=== PATIENT | male | born 1995 | race Caucasian/White ===

== ENCOUNTER 2020-12-16 15:34 | Emergency (ER) | payer OTHER, SELFPAY ==
[2020-12-16 15:47] VITALS: TEMP 97.4; BMI 23.7
[2020-12-16 18:16] LABS: ALBUMIN 3.1 g/dl (3.4-5.0); BLOOD UREA NITROGEN 9.2 mg/dL (7-18); CALCIUM 9.1 mg/dL (8.5-10.1)
[2020-12-16 18:20] LABS: CREATININE 0.3 mg/dL (0.55-1.3)
[2020-12-16 18:21] LABS: BILIRUBIN,TOTAL 0.4 mg/dL (0.2-1); TOT PROT 7.5 g/dl (6.4-8.2)
[2020-12-16 18:39] LABS: PH,URINE 8.5 (5.0-8.0); URINE APPEARANCE CLEAR; URINE BILIRUBIN NEGATIVE (NEGATIVE); URINE COLOR YELLOW; URINE GLUCOSE (UA) NEGATIVE (NEGATIVE); URINE KETONE NEGATIVE (NEGATIVE); URINE LEUK ESTERASE NEGATIVE (NEGATIVE); URINE NITRITE NEGATIVE (NEGATIVE); URINE PROTEIN NEGATIVE (NEGATIVE)
[2020-12-16 19:20] LABS: HEMATOCRIT 34.3 % (35.4-49); MCH 33.8 pg (25.7-33.7); MEAN CELL VOLUME 96.6 fl (80-96); RBC 3.55 M/mm3 (4.00-5.60); RDW 15.8 % (11.9-15.9); WHITE BLOOD COUNT 4.7 K/mm3 (4.0-10.0)
[2020-12-16 19:56] LABS: MEAN PLT VOLUME 7.6 fl (7.5-11.1); PLATELET COUNT 43 10^3/uL (134-434)
[2020-12-16 22:18] VITALS: BP 103/59; PULSE 58
== END 2020-12-16 22:10 | disposition home or self-care (01) ==
LOC: JER 15:34
DX: D69.6 Thrombocytopenia, unspecified (principal)
CPT/HCPCS: 36415; 70450-TC; 80053; 80164; 80177; 81003; 84443; 85027; 87077; 87086; 99284-25

== ENCOUNTER 2021-02-10 18:06 | Inpatient (IN) | payer OTHER ==
[2021-02-10] MEDS ORDERED: SODIUM CHLORIDE 0.9% 500 ML INFUS.BAG IV ONE (19:20)
[2021-02-10 21:26] LABS: VENOUS BASE EXCESS 0.3 mmol/L (-2-2); VENOUS O2 SATURATION 33.3 % (70-80); VENOUS PCO2 52.6 mmHg (38-52); VENOUS PH 7.327 (7.310-7.410)
[2021-02-10 21:38] LABS: HEMATOCRIT 35.2 % (35.4-49); HEMOGLOBIN 12.3 GM/dL (11.7-16.9); MEAN CELL VOLUME 99.9 fl (80-96); MEAN PLT VOLUME 6.8 fl (7.5-11.1); PLATELET COUNT 266 10^3/uL (134-434); RBC 3.52 M/mm3 (4.00-5.60); RDW 15.7 % (11.9-15.9); WHITE BLOOD COUNT 3.2 K/mm3 (4.0-10.0)
[2021-02-10 22:33] LABS: ALBUMIN 3.1 g/dl (3.4-5.0); ALK PHOS 83 U/L (45-117); ANION GAP 6 MMOL/L (8-16); BILIRUBIN,TOTAL 0.4 mg/dL (0.2-1); BLOOD UREA NITROGEN 7.4 mg/dL (7-18); CALCIUM 9.1 mg/dL (8.5-10.1); CHLORIDE 101 mmol/L (98-107); CO2 28 mmol/L (21-32); CREATININE 0.4 mg/dL (0.55-1.3); GLUCOSE,RANDOM 105 mg/dL (74-106); LACTIC ACID 2.8 mmol/L (0.4-2.0); SGOT/AST 27 U/L (15-37); SGPT/ALT 15 U/L (13-61); SODIUM 136 mmol/L (136-145); TOT PROT 8.2 g/dl (6.4-8.2)
[2021-02-10 23:26] LABS: ANISOCYTOSIS 0; MACROCYTOSIS 1+; PLATELET ESTIMATE NORMAL
[2021-02-11] MEDS ORDERED: VANCOMYCIN 1 GM in D5W (PRE-DOCKED) 1,000 MG/250 ML IVPB ONE (00:49)
[2021-02-11] MEDS ORDERED: PIPERACILLIN/TAZOB 3.375 GM 3.375 GM in DEXTROSE 5%-WATER - 50 ML IVPB ONE (00:49)
[2021-02-11] MEDS ORDERED: PIPERACILLIN/TAZOB 3.375 GM 3.375 GM/50 ML BAG IVPB ONE (01:14)
[2021-02-11] MEDS: SODIUM CHLORIDE 1,000 ML IV SCH (05:54)
[2021-02-11] MEDS: VALPROATE SODIUM 250 MG/5 ML UNIT DOSE CUP GT SCH ×2 (07:29→18:32)
[2021-02-11 08:12] LABS: HEMATOCRIT 32.6 % (35.4-49); MCHC 33.8 g/dl (32.0-35.9); MEAN CELL VOLUME 100.7 fl (80-96); MEAN PLT VOLUME 6.8 fl (7.5-11.1); PLATELET COUNT 255 10^3/uL (134-434); RBC 3.24 M/mm3 (4.00-5.60); WHITE BLOOD COUNT 15.5 K/mm3 (4.0-10.0)
[2021-02-11 08:24] LABS: EPI CELLS 14 /uL (0-25.1); HYALINE CASTS 1 /uL (0-3.1); PH,URINE >= 9.0 (5.0-8.0); URINE APPEARANCE CLEAR; URINE BACTERIA 7 /uL (0-1359); URINE BILIRUBIN NEGATIVE (NEGATIVE); URINE COLOR YELLOW; URINE GLUCOSE (UA) NEGATIVE (NEGATIVE); URINE KETONE NEGATIVE (NEGATIVE); URINE LEUK ESTERASE NEGATIVE (NEGATIVE); URINE NITRITE NEGATIVE (NEGATIVE); URINE PROTEIN NEGATIVE (NEGATIVE); URINE RBC 43 /uL (0-23.9); URINE UROBILINOGEN 0.2 mg/dL (0.2-1.0); URINE WBC 10 /uL (0-25.8)
[2021-02-11] MEDS: levETIRAcetam 500 MG/5 ML ORAL SOLUTION (UNIT-DOSE CUPS) GT SCH ×3 (08:29→21:25)
[2021-02-11 08:34] LABS: BLOOD UREA NITROGEN 7.9 mg/dL (7-18); CALCIUM 8.9 mg/dL (8.5-10.1)
[2021-02-11 08:35] LABS: ALBUMIN 2.6 g/dl (3.4-5.0); MAGNESIUM 2.2 mg/dL (1.8-2.4)
[2021-02-11 08:38] LABS: CREATININE 0.4 mg/dL (0.55-1.3); PHOSPHOROUS 3.7 mg/dL (2.5-4.9)
[2021-02-11 08:39] LABS: BILIRUBIN,TOTAL 0.4 mg/dL (0.2-1); TOT PROT 7.4 g/dl (6.4-8.2)
[2021-02-11] MEDS ORDERED: PIPERACILLIN/TAZOB 4.5 GM 4.5 GM in DEXTROSE 5%-WATER 100 ML IVPB SCH (09:00)
[2021-02-11] MEDS ORDERED: CLOTRIMAZOLE 1% CREAM TP SCH (10:00)
[2021-02-11] MEDS ORDERED: NYSTATIN 100000 UNIT/GM TOPICAL OINTMENT 15 GM TUBE TP SCH (10:00)
[2021-02-11] MEDS ORDERED: DEXTROSE 5%-WATER 100 ML IVPB ONE ×2 (10:20→17:54)
[2021-02-11] MEDS ORDERED: PIPERACILLIN/TAZOBACTAM 4.5 GM VIAL IVPB ONE ×2 (10:20→17:54)
[2021-02-11 10:29] LABS: ANISOCYTOSIS 1+; MACROCYTOSIS 1+; PLATELET ESTIMATE NORMAL
[2021-02-11] MEDS: ALBUTEROL SO4 2.5/IPRATROPIUM 0.5 INH SOL 3 ML VIAL.NEB. NEB SCH ×3 (11:08→20:16)
[2021-02-11] MEDS: ENOXAPARIN NA (PORCINE) 40 MG/0.4 ML DISP.SYRIN SQ SCH (11:09)
[2021-02-11] MEDS: FAMOTIDINE 20 MG/50 ML IVPB 20 MG/50 ML MG IVPB SCH ×2 (11:11→21:24)
[2021-02-11] MEDS ORDERED: PT OWN MED DRAWER 7, Y5N ONE ×3 (11:15→17:55)
[2021-02-11] MEDS: HYDROCORTISONE 1% TOPICAL CREAM 30 GM TUBE TP SCH ×2 (11:48→21:28)
[2021-02-11] MEDS: CLOTRIMAZOLE 1% CREAM TP SCH ×2 (11:48→21:27)
[2021-02-11] MEDS: NYSTATIN 100,000 UNIT/GM TOPICAL CREAM 15 GM TUBE TP SCH ×2 (11:48→21:27)
[2021-02-11] MEDS ORDERED: GLYCOPYRROLATE 2 MG TABLET PO SCH (14:00)
[2021-02-11] MEDS: PIPERACILLIN/TAZOB 4.5 GM 4.5 GM in DEXTROSE 5%-WATER 100 ML IVPB SCH (18:00)
[2021-02-11] MEDS: LEVOTHYROXINE SODIUM 100 MCG VIAL IVPUSH SCH (18:04)
[2021-02-11] MEDS ORDERED: VALPROATE SODIUM 250 MG/5 ML UNIT DOSE CUP GT ONE (20:15)
[2021-02-11] MEDS: GLYCOPYRROLATE 1 MG TABLET PO SCH (21:27)
[2021-02-12] MEDS ORDERED: PIPERACILLIN/TAZOBACTAM 4.5 GM VIAL IVPB ONE ×3 (01:42→16:50)
[2021-02-12] MEDS ORDERED: DEXTROSE 5%-WATER 100 ML IVPB ONE ×3 (01:42→16:51)
[2021-02-12] MEDS: PIPERACILLIN/TAZOB 4.5 GM 4.5 GM in DEXTROSE 5%-WATER 100 ML IVPB SCH ×3 (01:49→17:22)
[2021-02-12] MEDS: GLYCOPYRROLATE 1 MG TABLET PO SCH ×3 (06:18→21:55)
[2021-02-12] MEDS: SODIUM CHLORIDE 1,000 ML IV SCH ×2 (06:19→14:46)
[2021-02-12] MEDS: VALPROATE SODIUM 250 MG/5 ML UNIT DOSE CUP GT SCH ×3 (06:19→20:03)
[2021-02-12] MEDS ORDERED: INSULIN (NOVOLOG) ASPART 100 UNITS/ML 10ML VIAL ONE (06:43)
[2021-02-12] MEDS: ALBUTEROL SO4 2.5/IPRATROPIUM 0.5 INH SOL 3 ML VIAL.NEB. NEB SCH ×4 (07:55→19:53)
[2021-02-12 08:11] LABS: BASO % 0.1 % (0-2.0); EOS % 0.7 % (0-4.5); HEMATOCRIT 25.4 % (35.4-49); HEMOGLOBIN 8.7 GM/dL (11.7-16.9); LYMPH % 13.8 % (8-40); MCH 34.8 pg (25.7-33.7); MCHC 34.2 g/dl (32.0-35.9); MEAN CELL VOLUME 101.5 fl (80-96); MEAN PLT VOLUME 6.8 fl (7.5-11.1); MONO % 15.5 % (3.8-10.2); NEUT % 69.9 % (42.8-82.8); PLATELET COUNT 271 10^3/uL (134-434); RBC 2.51 M/mm3 (4.00-5.60); RDW 16.5 % (11.9-15.9); WHITE BLOOD COUNT 15.2 K/mm3 (4.0-10.0)
[2021-02-12 08:33] LABS: CALCIUM 8.3 mg/dL (8.5-10.1)
[2021-02-12 08:34] LABS: BLOOD UREA NITROGEN 7.7 mg/dL (7-18); MAGNESIUM 2.1 mg/dL (1.8-2.4)
[2021-02-12 08:37] LABS: BILIRUBIN,TOTAL 0.2 mg/dL (0.2-1); CREATININE 0.2 mg/dL (0.55-1.3); TOT PROT 5.7 g/dl (6.4-8.2)
[2021-02-12] MEDS ORDERED: PT OWN MED DRAWER 7, Y5N ONE ×4 (08:52→14:03)
[2021-02-12] MEDS: FAMOTIDINE 20 MG/50 ML IVPB 20 MG/50 ML MG IVPB SCH ×2 (09:00→21:55)
[2021-02-12] MEDS: HYDROCORTISONE 1% TOPICAL CREAM 30 GM TUBE TP SCH ×2 (09:02→21:55)
[2021-02-12] MEDS: levETIRAcetam 500 MG/5 ML ORAL SOLUTION (UNIT-DOSE CUPS) GT SCH ×3 (09:07→20:03)
[2021-02-12] MEDS: CLOTRIMAZOLE 1% CREAM TP SCH ×2 (09:07→21:55)
[2021-02-12] MEDS: NYSTATIN 100,000 UNIT/GM TOPICAL CREAM 15 GM TUBE TP SCH ×2 (09:08→21:55)
[2021-02-12] MEDS: LEVOTHYROXINE SODIUM 100 MCG VIAL IVPUSH SCH (09:08)
[2021-02-12] MEDS: ENOXAPARIN NA (PORCINE) 40 MG/0.4 ML DISP.SYRIN SQ SCH (09:08)
[2021-02-12 16:05] VITALS: BMI 28.1
[2021-02-13] MEDS ORDERED: PIPERACILLIN/TAZOBACTAM 4.5 GM VIAL IVPB ONE ×3 (02:49→18:11)
[2021-02-13] MEDS ORDERED: DEXTROSE 5%-WATER 100 ML IVPB ONE ×3 (02:49→18:11)
[2021-02-13] MEDS: PIPERACILLIN/TAZOB 4.5 GM 4.5 GM in DEXTROSE 5%-WATER 100 ML IVPB SCH ×3 (03:00→18:15)
[2021-02-13] MEDS: GLYCOPYRROLATE 1 MG TABLET PO SCH (06:35)
[2021-02-13] MEDS: VALPROATE SODIUM 250 MG/5 ML UNIT DOSE CUP GT SCH ×3 (06:35→21:10)
[2021-02-13] MEDS: ALBUTEROL SO4 2.5/IPRATROPIUM 0.5 INH SOL 3 ML VIAL.NEB. NEB SCH ×4 (07:45→20:11)
[2021-02-13 09:36] LABS: BASO % 0.1 % (0-2.0); EOS % 1.3 % (0-4.5); HEMATOCRIT 26.5 % (35.4-49); HEMOGLOBIN 9.2 GM/dL (11.7-16.9); LYMPH % 16.7 % (8-40); MCH 34.7 pg (25.7-33.7); MCHC 34.7 g/dl (32.0-35.9); MEAN PLT VOLUME 6.6 fl (7.5-11.1); MONO % 10.9 % (3.8-10.2); PLATELET COUNT 336 10^3/uL (134-434); RBC 2.65 M/mm3 (4.00-5.60); RDW 16.5 % (11.9-15.9); WHITE BLOOD COUNT 12.1 K/mm3 (4.0-10.0)
[2021-02-13 09:58] LABS: ALBUMIN 2.2 g/dl (3.4-5.0); BLOOD UREA NITROGEN 3.1 mg/dL (7-18); CALCIUM 8.8 mg/dL (8.5-10.1); MAGNESIUM 2.3 mg/dL (1.8-2.4)
[2021-02-13 10:02] LABS: CREATININE 0.3 mg/dL (0.55-1.3)
[2021-02-13 10:03] LABS: BILIRUBIN,TOTAL 0.2 mg/dL (0.2-1); TOT PROT 6.3 g/dl (6.4-8.2)
[2021-02-13] MEDS ORDERED: PT OWN MED DRAWER 7, Y5N ONE ×4 (10:07→20:41)
[2021-02-13] MEDS: LEVOTHYROXINE SODIUM 100 MCG VIAL IVPUSH SCH (10:11)
[2021-02-13] MEDS: ENOXAPARIN NA (PORCINE) 40 MG/0.4 ML DISP.SYRIN SQ SCH (10:11)
[2021-02-13] MEDS: NYSTATIN 100,000 UNIT/GM TOPICAL CREAM 15 GM TUBE TP SCH ×2 (10:11→21:11)
[2021-02-13] MEDS: HYDROCORTISONE 1% TOPICAL CREAM 30 GM TUBE TP SCH ×2 (10:11→21:12)
[2021-02-13] MEDS: CLOTRIMAZOLE 1% CREAM TP SCH ×2 (10:11→21:12)
[2021-02-13] MEDS: FAMOTIDINE 20 MG/50 ML IVPB 20 MG/50 ML MG IVPB SCH ×2 (10:11→21:11)
[2021-02-13] MEDS: levETIRAcetam 500 MG/5 ML ORAL SOLUTION (UNIT-DOSE CUPS) GT SCH ×3 (10:13→21:06)
[2021-02-13] MEDS: GLYCOPYRROLATE 1 MG TABLET GT SCH ×2 (13:41→21:59)
[2021-02-14] MEDS ORDERED: DEXTROSE 5%-WATER 100 ML IVPB ONE ×4 (01:22→18:12)
[2021-02-14] MEDS ORDERED: PIPERACILLIN/TAZOBACTAM 4.5 GM VIAL IVPB ONE ×4 (01:22→18:12)
[2021-02-14] MEDS: PIPERACILLIN/TAZOB 4.5 GM 4.5 GM in DEXTROSE 5%-WATER 100 ML IVPB SCH ×3 (01:29→18:20)
[2021-02-14] MEDS ORDERED: PT OWN MED DRAWER 7, Y5N ONE ×7 (05:42→21:57)
[2021-02-14] MEDS: GLYCOPYRROLATE 1 MG TABLET GT SCH ×3 (06:57→22:08)
[2021-02-14] MEDS: VALPROATE SODIUM 250 MG/5 ML UNIT DOSE CUP GT SCH ×3 (06:57→20:27)
[2021-02-14] MEDS: ALBUTEROL SO4 2.5/IPRATROPIUM 0.5 INH SOL 3 ML VIAL.NEB. NEB SCH ×4 (07:20→19:58)
[2021-02-14] MEDS: ENOXAPARIN NA (PORCINE) 40 MG/0.4 ML DISP.SYRIN SQ SCH (09:29)
[2021-02-14] MEDS: levETIRAcetam 500 MG/5 ML ORAL SOLUTION (UNIT-DOSE CUPS) GT SCH ×3 (09:29→20:28)
[2021-02-14] MEDS: FAMOTIDINE 20 MG/50 ML IVPB 20 MG/50 ML MG IVPB SCH ×2 (09:33→22:08)
[2021-02-14 09:54] LABS: HEMOGLOBIN 10.1 GM/dL (11.7-16.9); MCH 34.4 pg (25.7-33.7); MCHC 34.8 g/dl (32.0-35.9); MEAN CELL VOLUME 98.8 fl (80-96); MEAN PLT VOLUME 6.6 fl (7.5-11.1); PLATELET COUNT 333 10^3/uL (134-434); RBC 2.94 M/mm3 (4.00-5.60); RDW 15.8 % (11.9-15.9); WHITE BLOOD COUNT 7.3 K/mm3 (4.0-10.0)
[2021-02-14 10:15] LABS: CALCIUM 8.7 mg/dL (8.5-10.1)
[2021-02-14 10:16] LABS: ALBUMIN 2.4 g/dl (3.4-5.0); BLOOD UREA NITROGEN 3.1 mg/dL (7-18); MAGNESIUM 2.4 mg/dL (1.8-2.4)
[2021-02-14 10:19] LABS: CREATININE 0.3 mg/dL (0.55-1.3)
[2021-02-14 10:20] LABS: BILIRUBIN,TOTAL 0.2 mg/dL (0.2-1); TOT PROT 6.5 g/dl (6.4-8.2)
[2021-02-14 10:33] LABS: ANISOCYTOSIS 1+; MACROCYTOSIS 1+; PLATELET ESTIMATE NORMAL
[2021-02-14] MEDS: HYDROCORTISONE 1% TOPICAL CREAM 30 GM TUBE TP SCH ×2 (12:14→22:09)
[2021-02-14] MEDS: NYSTATIN 100,000 UNIT/GM TOPICAL CREAM 15 GM TUBE TP SCH ×2 (12:14→22:08)
[2021-02-14] MEDS: LEVOTHYROXINE SODIUM 100 MCG VIAL IVPUSH SCH (12:14)
[2021-02-14] MEDS: CLOTRIMAZOLE 1% CREAM TP SCH ×2 (12:14→22:08)
[2021-02-14] MEDS ORDERED: ACETAMINOPHEN 650 MG/20.3 ML ORAL SOLUTION (CUPS) GT ONE (21:51)
[2021-02-14] MEDS ORDERED: INSULIN (NOVOLOG) ASPART 100 UNITS/ML 10ML VIAL SQ ONE (22:32)
[2021-02-15] MEDS ORDERED: PIPERACILLIN/TAZOBACTAM 4.5 GM VIAL IVPB ONE ×3 (01:47→17:11)
[2021-02-15] MEDS ORDERED: DEXTROSE 5%-WATER 100 ML IVPB ONE ×3 (01:47→17:11)
[2021-02-15] MEDS: PIPERACILLIN/TAZOB 4.5 GM 4.5 GM in DEXTROSE 5%-WATER 100 ML IVPB SCH ×3 (02:23→18:16)
[2021-02-15] MEDS ORDERED: PT OWN MED DRAWER 7, Y5N ONE ×3 (06:30→20:55)
[2021-02-15] MEDS: VALPROATE SODIUM 250 MG/5 ML UNIT DOSE CUP GT SCH ×3 (06:37→21:24)
[2021-02-15] MEDS: GLYCOPYRROLATE 1 MG TABLET GT SCH ×3 (06:37→21:22)
[2021-02-15] MEDS: ALBUTEROL SO4 2.5/IPRATROPIUM 0.5 INH SOL 3 ML VIAL.NEB. NEB SCH ×4 (07:25→20:35)
[2021-02-15 09:16] LABS: HEMATOCRIT 28.9 % (35.4-49); HEMOGLOBIN 10.1 GM/dL (11.7-16.9); MCH 34.8 pg (25.7-33.7); MCHC 34.9 g/dl (32.0-35.9); MEAN CELL VOLUME 99.7 fl (80-96); MEAN PLT VOLUME 6.7 fl (7.5-11.1); PLATELET COUNT 362 10^3/uL (134-434); RDW 15.8 % (11.9-15.9); WHITE BLOOD COUNT 5.9 K/mm3 (4.0-10.0)
[2021-02-15] MEDS: FAMOTIDINE 20 MG/50 ML IVPB 20 MG/50 ML MG IVPB SCH ×2 (09:31→21:23)
[2021-02-15] MEDS: LEVOTHYROXINE SODIUM 100 MCG VIAL IVPUSH SCH (09:32)
[2021-02-15] MEDS: ENOXAPARIN NA (PORCINE) 40 MG/0.4 ML DISP.SYRIN SQ SCH (09:32)
[2021-02-15] MEDS: levETIRAcetam 500 MG/5 ML ORAL SOLUTION (UNIT-DOSE CUPS) GT SCH ×3 (09:38→21:22)
[2021-02-15 09:45] LABS: ALBUMIN 2.4 g/dl (3.4-5.0); BILIRUBIN,TOTAL 0.3 mg/dL (0.2-1); TOT PROT 6.6 g/dl (6.4-8.2)
[2021-02-15 09:46] LABS: CALCIUM 8.5 mg/dL (8.5-10.1)
[2021-02-15 09:47] LABS: BLOOD UREA NITROGEN 4.8 mg/dL (7-18); MAGNESIUM 2.4 mg/dL (1.8-2.4)
[2021-02-15 09:48] LABS: CREATININE 0.3 mg/dL (0.55-1.3)
[2021-02-15 10:14] LABS: ANISOCYTOSIS 1+; MACROCYTOSIS 1+; PLATELET ESTIMATE NORMAL
[2021-02-15] MEDS: HYDROCORTISONE 1% TOPICAL CREAM 30 GM TUBE TP SCH ×2 (12:43→21:21)
[2021-02-15] MEDS: NYSTATIN 100,000 UNIT/GM TOPICAL CREAM 15 GM TUBE TP SCH ×2 (12:43→21:21)
[2021-02-15] MEDS: CLOTRIMAZOLE 1% CREAM TP SCH ×2 (12:43→21:20)
[2021-02-15] MEDS ORDERED: ACETAMINOPHEN 650 MG/20.3 ML ORAL SOLUTION (CUPS) GT ONE (21:56)
[2021-02-16] MEDS ORDERED: PT OWN MED DRAWER 7, Y5N ONE ×4 (06:20→10:04)
[2021-02-16] MEDS: GLYCOPYRROLATE 1 MG TABLET GT SCH (06:22)
[2021-02-16] MEDS: VALPROATE SODIUM 250 MG/5 ML UNIT DOSE CUP GT SCH (06:23)
[2021-02-16 06:46] VITALS: BP 110/71; PULSE 78; TEMP 98.2
[2021-02-16] MEDS: ALBUTEROL SO4 2.5/IPRATROPIUM 0.5 INH SOL 3 ML VIAL.NEB. NEB SCH ×2 (07:30→11:10)
[2021-02-16] MEDS ORDERED: AMOX TR/POTASSIUM CLAVULANATE 400 MG/5 ML BOTTLE GT SCH (08:00)
[2021-02-16] MEDS: levETIRAcetam 500 MG/5 ML ORAL SOLUTION (UNIT-DOSE CUPS) GT SCH (08:53)
[2021-02-16] MEDS: FAMOTIDINE 20 MG/50 ML IVPB 20 MG/50 ML MG IVPB SCH (10:07)
[2021-02-16] MEDS: ENOXAPARIN NA (PORCINE) 40 MG/0.4 ML DISP.SYRIN SQ SCH (10:07)
[2021-02-16] MEDS: LEVOTHYROXINE SODIUM 100 MCG VIAL IVPUSH SCH (10:08)
[2021-02-16] MEDS: NYSTATIN 100,000 UNIT/GM TOPICAL CREAM 15 GM TUBE TP SCH (10:08)
[2021-02-16] MEDS: CLOTRIMAZOLE 1% CREAM TP SCH (10:10)
[2021-02-16 10:28] LABS: HEMATOCRIT 30.9 % (35.4-49); HEMOGLOBIN 10.5 GM/dL (11.7-16.9); MCH 34.4 pg (25.7-33.7); MCHC 33.9 g/dl (32.0-35.9); MEAN CELL VOLUME 101.2 fl (80-96); MEAN PLT VOLUME 6.8 fl (7.5-11.1); PLATELET COUNT 374 10^3/uL (134-434); RBC 3.05 M/mm3 (4.00-5.60); RDW 16.1 % (11.9-15.9); WHITE BLOOD COUNT 6.9 K/mm3 (4.0-10.0)
[2021-02-16 11:03] LABS: ALBUMIN 2.4 g/dl (3.4-5.0); CALCIUM 8.6 mg/dL (8.5-10.1); MAGNESIUM 2.5 mg/dL (1.8-2.4)
[2021-02-16 11:04] LABS: BLOOD UREA NITROGEN 7.2 mg/dL (7-18)
[2021-02-16 11:07] LABS: CREATININE 0.3 mg/dL (0.55-1.3)
[2021-02-16 11:08] LABS: BILIRUBIN,TOTAL 0.2 mg/dL (0.2-1); TOT PROT 6.6 g/dl (6.4-8.2)
[2021-02-16 13:03] LABS: ANISOCYTOSIS 1+; MACROCYTOSIS 0; OVALOCYTE 1+; PLATELET ESTIMATE NORMAL
== END 2021-02-16 12:25 | disposition home or self-care (01) | DRG 720 ==
LOC: JER 18:06 → JERBED 02-11 00:48 → J8W 02-11 08:30
PROVIDERS: ADMIT Internal Medicine; ATTEND Nurse Practitioner Acute Care
PROC: 3E0G76Z Introduction of Nutritional Substance into Upper GI, Via Natural or Artificial Opening (ICD-10-PCS; principal; 2021-02-11)
DX: A41.9 Sepsis, unspecified organism (principal); F79 Unspecified intellectual disabilities; J69.0 Pneumonitis due to inhalation of food and vomit; G40.909 Epilepsy, unspecified, not intractable, without status epilepticus; R21 Rash and other nonspecific skin eruption; R53.2 Functional quadriplegia; E87.2 Acidosis; G80.0 Spastic quadriplegic cerebral palsy; G40.834 Dravet syndrome, intractable, without status epilepticus; D64.9 Anemia, unspecified; Z93.1 Gastrostomy status
CPT/HCPCS: 36415; 71045-TC-FY; 71275-TC; 80053; 80164; 80177; 81003; 82550; 82803; 83605; 83735; 84100; 84484; 85025; 85379; 86850; 86900; 86901; 87040; 87804; 87899; 93005; 93010; 94640; 99291; C9803; U0003; U0005

== ENCOUNTER 2022-01-28 09:48 | Inpatient (IN) | payer OTHER, SELFPAY ==
[2022-01-28 11:58] LABS: VENOUS O2 SATURATION 93.2 % (70-80); VENOUS PCO2 41.7 mmHg (38-52); VENOUS PH 7.394 (7.310-7.410)
[2022-01-28 11:59] LABS: HEMATOCRIT 33.6 % (35.4-49); HEMOGLOBIN 10.7 GM/dL (11.7-16.9); MCH 29.6 pg (25.7-33.7); MCHC 31.9 g/dl (32.0-35.9); MEAN CELL VOLUME 92.7 fl (80-96); MEAN PLT VOLUME 6.2 fl (7.5-11.1); PLATELET COUNT 104 10^3/uL (134-434); RBC 3.62 M/mm3 (4.00-5.60); RDW 16.1 % (11.9-15.9); WHITE BLOOD COUNT 11.5 K/mm3 (4.0-10.0)
[2022-01-28 12:01] LABS: PH,URINE 7.5 (5.0-8.0); URINE APPEARANCE CLEAR; URINE BILIRUBIN NEGATIVE (NEGATIVE); URINE COLOR DK YELLOW; URINE GLUCOSE (UA) NEGATIVE (NEGATIVE); URINE KETONE NEGATIVE (NEGATIVE); URINE LEUK ESTERASE NEGATIVE (NEGATIVE); URINE NITRITE NEGATIVE (NEGATIVE); URINE PROTEIN TRACE (NEGATIVE)
[2022-01-28 12:13] LABS: INR 1.06 (0.83-1.09); PROTHROMBIN TIME (PATIENT) 12.2 SEC (9.7-13.0)
[2022-01-28 12:16] LABS: ACTIVATED PTT 24.1 SECONDS (25.2-36.5)
[2022-01-28 12:20] LABS: BLOOD UREA NITROGEN 10.1 mg/dL (7-18); CALCIUM 8.7 mg/dL (8.5-10.1)
[2022-01-28 12:23] LABS: CREATININE 0.3 mg/dL (0.55-1.3)
[2022-01-28 12:25] LABS: ANISOCYTOSIS 0; BILIRUBIN,TOTAL 0.4 mg/dL (0.2-1); MACROCYTOSIS 0; TOT PROT 6.9 g/dl (6.4-8.2)
[2022-01-28] MEDS ORDERED: VALPROATE SODIUM 250 MG/5 ML UNIT DOSE CUP PO SCH (17:45)
[2022-01-28 20:37] VITALS: BMI 29.8
[2022-01-29] MEDS: VALPROATE SODIUM 250 MG/5 ML UNIT DOSE CUP GT SCH ×4 (02:10→23:00)
[2022-01-29] MEDS: FAMOTIDINE 40 MG/5 ML ORAL SUSPENSION GT SCH ×3 (02:10→23:06)
[2022-01-29] MEDS: LEVOTHYROXINE NA 75 MCG TABLET (FP) GT SCH (06:44)
[2022-01-29] MEDS ORDERED: ALBUTEROL SO4 2.5/IPRATROPIUM 0.5 INH SOL 3 ML VIAL.NEB. NEB PRN (07:49)
[2022-01-29] MEDS: levETIRAcetam 500 MG/5 ML ORAL SOLUTION (UNIT-DOSE CUPS) GT SCH ×3 (09:00→12:48)
[2022-01-29] MEDS: CEFTRIAXONE 1 GM in DEXTROSE 5%-WATER - 50 ML IVPB SCH ×2 (09:36→13:12)
[2022-01-29 09:39] LABS: HEMATOCRIT 31.9 % (35.4-49); HEMOGLOBIN 10.1 GM/dL (11.7-16.9); MCH 29.1 pg (25.7-33.7); MCHC 31.6 g/dl (32.0-35.9); MEAN PLT VOLUME 6.7 fl (7.5-11.1); PLATELET COUNT 177 10^3/uL (134-434); RBC 3.47 M/mm3 (4.00-5.60); RDW 16.1 % (11.9-15.9); WHITE BLOOD COUNT 9.6 K/mm3 (4.0-10.0)
[2022-01-29] MEDS: LACTOBACILLUS ACIDOPHILUS 1 TABLET GT SCH (09:42)
[2022-01-29 09:50] LABS: INR 1.09 (0.83-1.09); PROTHROMBIN TIME (PATIENT) 12.6 SEC (9.7-13.0)
[2022-01-29 09:52] LABS: ACTIVATED PTT 31.3 SECONDS (25.2-36.5)
[2022-01-29 10:10] LABS: ANISOCYTOSIS 0; HELMET CELLS 0; HOWELL-JOLLY BODIES 0; MACROCYTOSIS 0; OVALOCYTE 0; ROULEAU 0; SICKELED CELLS 0; TARGET CELLS 0; TEAR DROP CELLS 0; TOXIC GRANULATION 0
[2022-01-29 11:40] LABS: ALBUMIN 2.2 g/dl (3.4-5.0); CALCIUM 8.9 mg/dL (8.5-10.1); MAGNESIUM 2.6 mg/dL (1.8-2.4)
[2022-01-29 11:43] LABS: CREATININE 0.5 mg/dL (0.55-1.3)
[2022-01-29 11:44] LABS: PHOSPHOROUS 4.9 mg/dL (2.5-4.9)
[2022-01-29 11:45] LABS: BILIRUBIN,TOTAL 0.5 mg/dL (0.2-1); TOT PROT 7.2 g/dl (6.4-8.2)
[2022-01-29 11:59] LABS: BF WBC & OTHER NUCLEATED CELLS 2566 /mm3
[2022-01-29 13:13] LABS: BODY FLUID MACROPHAGES 6 %; BODYL FLD EOSINOPHIL 2 %
[2022-01-29] MEDS: AZITHROMYCIN IVPB 500 MG/250 ML BAG IVPB SCH (14:05)
[2022-01-29] MEDS: GLYCOPYRROLATE 1 MG TABLET GT SCH ×2 (14:08→23:06)
[2022-01-30] MEDS: LEVOTHYROXINE NA 75 MCG TABLET (FP) GT SCH (06:19)
[2022-01-30] MEDS: GLYCOPYRROLATE 1 MG TABLET GT SCH ×3 (06:19→21:28)
[2022-01-30] MEDS: VALPROATE SODIUM 250 MG/5 ML UNIT DOSE CUP GT SCH ×3 (06:20→20:30)
[2022-01-30 08:35] LABS: HEMATOCRIT 32.8 % (35.4-49); HEMOGLOBIN 10.3 GM/dL (11.7-16.9); MCHC 31.4 g/dl (32.0-35.9); MEAN CELL VOLUME 92.2 fl (80-96); MEAN PLT VOLUME 6.4 fl (7.5-11.1); PLATELET COUNT 198 10^3/uL (134-434); RBC 3.56 M/mm3 (4.00-5.60); WHITE BLOOD COUNT 8.7 K/mm3 (4.0-10.0)
[2022-01-30 09:07] LABS: BLOOD UREA NITROGEN 15.5 mg/dL (7-18); CALCIUM 8.6 mg/dL (8.5-10.1); MAGNESIUM 2.4 mg/dL (1.8-2.4)
[2022-01-30 09:08] LABS: CREATININE 0.3 mg/dL (0.55-1.3)
[2022-01-30 09:10] LABS: BILIRUBIN,TOTAL 0.4 mg/dL (0.2-1); TOT PROT 6.6 g/dl (6.4-8.2)
[2022-01-30] MEDS: CEFTRIAXONE 1 GM in DEXTROSE 5%-WATER - 50 ML IVPB SCH (09:40)
[2022-01-30] MEDS: levETIRAcetam 500 MG/5 ML ORAL SOLUTION (UNIT-DOSE CUPS) GT SCH ×2 (09:40→12:09)
[2022-01-30] MEDS: LACTOBACILLUS ACIDOPHILUS 1 TABLET GT SCH (09:43)
[2022-01-30] MEDS: FAMOTIDINE 40 MG/5 ML ORAL SUSPENSION GT SCH ×2 (09:43→21:27)
[2022-01-30 11:00] LABS: ANISOCYTOSIS 1+; MACROCYTOSIS 0; TOXIC GRANULATION 2+
[2022-01-30] MEDS: AZITHROMYCIN IVPB 500 MG/250 ML BAG IVPB SCH (12:08)
[2022-01-30] MEDS: ENOXAPARIN NA (PORCINE) 40 MG/0.4 ML DISP.SYRIN SQ SCH (15:37)
[2022-01-31] MEDS: GLYCOPYRROLATE 1 MG TABLET GT SCH ×3 (06:27→21:33)
[2022-01-31] MEDS: LEVOTHYROXINE NA 75 MCG TABLET (FP) GT SCH (06:27)
[2022-01-31] MEDS: VALPROATE SODIUM 250 MG/5 ML UNIT DOSE CUP GT SCH ×3 (06:38→20:46)
[2022-01-31 09:25] LABS: HEMATOCRIT 29.4 % (35.4-49); HEMOGLOBIN 9.3 GM/dL (11.7-16.9); MCH 28.7 pg (25.7-33.7); MCHC 31.6 g/dl (32.0-35.9); MEAN CELL VOLUME 90.9 fl (80-96); MEAN PLT VOLUME 6.6 fl (7.5-11.1); PLATELET COUNT 226 10^3/uL (134-434); RBC 3.23 M/mm3 (4.00-5.60); RDW 16.2 % (11.9-15.9); WHITE BLOOD COUNT 8.2 K/mm3 (4.0-10.0)
[2022-01-31 10:03] LABS: ALBUMIN 1.8 g/dl (3.4-5.0); ANISOCYTOSIS 0; HELMET CELLS 0; HOWELL-JOLLY BODIES 0; MACROCYTOSIS 0; OVALOCYTE 0; ROULEAU 0; SICKELED CELLS 0; TARGET CELLS 0; TEAR DROP CELLS 0; TOXIC GRANULATION 0
[2022-01-31 10:04] LABS: BLOOD UREA NITROGEN 13.5 mg/dL (7-18); CALCIUM 8.7 mg/dL (8.5-10.1); MAGNESIUM 2.4 mg/dL (1.8-2.4)
[2022-01-31 10:06] LABS: CREATININE 0.3 mg/dL (0.55-1.3)
[2022-01-31 10:08] LABS: BILIRUBIN,TOTAL 0.4 mg/dL (0.2-1); TOT PROT 6.4 g/dl (6.4-8.2)
[2022-01-31] MEDS: levETIRAcetam 500 MG/5 ML ORAL SOLUTION (UNIT-DOSE CUPS) GT SCH ×2 (11:21→13:53)
[2022-01-31] MEDS: CEFTRIAXONE 1 GM in DEXTROSE 5%-WATER - 50 ML IVPB SCH (11:24)
[2022-01-31] MEDS: ENOXAPARIN NA (PORCINE) 40 MG/0.4 ML DISP.SYRIN SQ SCH (11:25)
[2022-01-31] MEDS: LACTOBACILLUS ACIDOPHILUS 1 TABLET GT SCH (11:25)
[2022-01-31] MEDS: FAMOTIDINE 40 MG/5 ML ORAL SUSPENSION GT SCH ×2 (11:25→21:32)
[2022-01-31] MEDS: AZITHROMYCIN IVPB 500 MG/250 ML BAG IVPB SCH (12:35)
[2022-02-01] MEDS ORDERED: ACETAMINOPHEN 650 MG/20.3 ML ORAL SOLUTION (CUPS) GT ONE (02:20)
[2022-02-01] MEDS: LEVOTHYROXINE NA 75 MCG TABLET (FP) GT SCH (06:05)
[2022-02-01] MEDS: GLYCOPYRROLATE 1 MG TABLET GT SCH ×3 (06:05→21:22)
[2022-02-01] MEDS: VALPROATE SODIUM 250 MG/5 ML UNIT DOSE CUP GT SCH ×3 (06:06→21:21)
[2022-02-01] MEDS: levETIRAcetam 500 MG/5 ML ORAL SOLUTION (UNIT-DOSE CUPS) GT SCH ×2 (08:26→12:19)
[2022-02-01 09:31] LABS: HEMATOCRIT 28.1 % (35.4-49); HEMOGLOBIN 9.3 GM/dL (11.7-16.9); MCH 29.9 pg (25.7-33.7); MCHC 33.1 g/dl (32.0-35.9); MEAN CELL VOLUME 90.3 fl (80-96); MEAN PLT VOLUME 6.1 fl (7.5-11.1); PLATELET COUNT 243 10^3/uL (134-434); RBC 3.11 M/mm3 (4.00-5.60); RDW 15.9 % (11.9-15.9); WHITE BLOOD COUNT 9.8 K/mm3 (4.0-10.0)
[2022-02-01 09:55] LABS: CALCIUM 8.7 mg/dL (8.5-10.1)
[2022-02-01 09:56] LABS: BLOOD UREA NITROGEN 10.7 mg/dL (7-18); MAGNESIUM 2.4 mg/dL (1.8-2.4)
[2022-02-01 09:59] LABS: CREATININE 0.3 mg/dL (0.55-1.3)
[2022-02-01 10:00] LABS: BILIRUBIN,TOTAL 0.6 mg/dL (0.2-1); TOT PROT 6.8 g/dl (6.4-8.2)
[2022-02-01] MEDS: AZITHROMYCIN IVPB 500 MG/250 ML BAG IVPB SCH (11:09)
[2022-02-01] MEDS: FAMOTIDINE 40 MG/5 ML ORAL SUSPENSION GT SCH ×2 (11:09→21:21)
[2022-02-01] MEDS: CEFTRIAXONE 1 GM in DEXTROSE 5%-WATER - 50 ML IVPB SCH (11:09)
[2022-02-01] MEDS: ENOXAPARIN NA (PORCINE) 40 MG/0.4 ML DISP.SYRIN SQ SCH (11:09)
[2022-02-01] MEDS: LACTOBACILLUS ACIDOPHILUS 1 TABLET GT SCH (11:10)
[2022-02-01 13:01] LABS: ANISOCYTOSIS 1+; MACROCYTOSIS 0
[2022-02-01] MEDS ORDERED: ACETAMINOPHEN 1000 MG/100 ML BAG IVPB ONE (16:01)
[2022-02-01 18:07] LABS: BODY FLUID ALBUMIN 2.4 g/dL (Not Estab.)
[2022-02-01] MEDS: ACETAMINOPHEN 650 MG/20.3 ML ORAL SOLUTION (CUPS) PO PRN (23:31)
[2022-02-02] MEDS: VALPROATE SODIUM 250 MG/5 ML UNIT DOSE CUP GT SCH ×3 (06:32→21:36)
[2022-02-02] MEDS: GLYCOPYRROLATE 1 MG TABLET GT SCH ×3 (06:32→21:37)
[2022-02-02] MEDS: LEVOTHYROXINE NA 75 MCG TABLET (FP) GT SCH (06:32)
[2022-02-02 09:37] LABS: HEMOGLOBIN 8.8 GM/dL (11.7-16.9); MCHC 32.7 g/dl (32.0-35.9); MEAN CELL VOLUME 91.7 fl (80-96); MEAN PLT VOLUME 6.5 fl (7.5-11.1); PLATELET COUNT 255 10^3/uL (134-434); RBC 2.95 M/mm3 (4.00-5.60); RDW 16.1 % (11.9-15.9); WHITE BLOOD COUNT 9.1 K/mm3 (4.0-10.0)
[2022-02-02 09:54] LABS: CALCIUM 8.7 mg/dL (8.5-10.1)
[2022-02-02 09:55] LABS: ALBUMIN 1.8 g/dl (3.4-5.0); BLOOD UREA NITROGEN 8.6 mg/dL (7-18); MAGNESIUM 2.6 mg/dL (1.8-2.4)
[2022-02-02 09:59] LABS: CREATININE 0.3 mg/dL (0.55-1.3)
[2022-02-02 10:00] LABS: BILIRUBIN,TOTAL 0.3 mg/dL (0.2-1)
[2022-02-02] MEDS: LACTOBACILLUS ACIDOPHILUS 1 TABLET GT SCH (10:32)
[2022-02-02] MEDS: levETIRAcetam 500 MG/5 ML ORAL SOLUTION (UNIT-DOSE CUPS) GT SCH ×2 (10:32→14:32)
[2022-02-02] MEDS: CEFTRIAXONE 1 GM in DEXTROSE 5%-WATER - 50 ML IVPB SCH (10:32)
[2022-02-02] MEDS: ENOXAPARIN NA (PORCINE) 40 MG/0.4 ML DISP.SYRIN SQ SCH (10:33)
[2022-02-02] MEDS: AZITHROMYCIN IVPB 500 MG/250 ML BAG IVPB SCH (10:34)
[2022-02-02] MEDS: FAMOTIDINE 40 MG/5 ML ORAL SUSPENSION GT SCH ×2 (10:37→21:40)
[2022-02-02 11:07] LABS: ANISOCYTOSIS 1+; MACROCYTOSIS 0; PLATELET ESTIMATE NORMAL
[2022-02-03] MEDS: LEVOTHYROXINE NA 75 MCG TABLET (FP) GT SCH (06:21)
[2022-02-03] MEDS: GLYCOPYRROLATE 1 MG TABLET GT SCH ×3 (06:22→22:10)
[2022-02-03] MEDS: VALPROATE SODIUM 250 MG/5 ML UNIT DOSE CUP GT SCH ×3 (06:23→22:09)
[2022-02-03] MEDS: ACETAMINOPHEN 650 MG/20.3 ML ORAL SOLUTION (CUPS) PO PRN ×2 (06:41→23:01)
[2022-02-03] MEDS: levETIRAcetam 500 MG/5 ML ORAL SOLUTION (UNIT-DOSE CUPS) GT SCH ×2 (09:35→13:26)
[2022-02-03] MEDS: ENOXAPARIN NA (PORCINE) 40 MG/0.4 ML DISP.SYRIN SQ SCH (09:35)
[2022-02-03] MEDS: FAMOTIDINE 40 MG/5 ML ORAL SUSPENSION GT SCH ×2 (09:35→22:10)
[2022-02-03] MEDS: LACTOBACILLUS ACIDOPHILUS 1 TABLET GT SCH (09:35)
[2022-02-03] MEDS: CEFTRIAXONE 1 GM in DEXTROSE 5%-WATER - 50 ML IVPB SCH (09:36)
[2022-02-03 12:06] LABS: HEMOGLOBIN 8.7 GM/dL (11.7-16.9); MCH 29.5 pg (25.7-33.7); MCHC 32.3 g/dl (32.0-35.9); MEAN CELL VOLUME 91.3 fl (80-96); MEAN PLT VOLUME 6.7 fl (7.5-11.1); PLATELET COUNT 346 10^3/uL (134-434); RBC 2.95 M/mm3 (4.00-5.60); WHITE BLOOD COUNT 9.2 K/mm3 (4.0-10.0)
[2022-02-03 12:36] LABS: ALBUMIN 1.8 g/dl (3.4-5.0)
[2022-02-03 12:37] LABS: CALCIUM 9.1 mg/dL (8.5-10.1)
[2022-02-03 12:41] LABS: MAGNESIUM 2.5 mg/dL (1.8-2.4)
[2022-02-03 12:45] LABS: BILIRUBIN,TOTAL 0.2 mg/dL (0.2-1); CREATININE 0.3 mg/dL (0.55-1.3); TOT PROT 6.4 g/dl (6.4-8.2)
[2022-02-03 13:13] LABS: ANISOCYTOSIS 0; HELMET CELLS 0; HOWELL-JOLLY BODIES 0; MACROCYTOSIS 0; OVALOCYTE 0; ROULEAU 0; SICKELED CELLS 0; TARGET CELLS 0; TEAR DROP CELLS 0; TOXIC GRANULATION 0
[2022-02-03] MEDS: AZITHROMYCIN IVPB 500 MG/250 ML BAG IVPB SCH (14:03)
[2022-02-03] MEDS ORDERED: AZITHROMYCIN 200 MG/5 ML BOTTLE GT ONE (15:56)
[2022-02-03] MEDS ORDERED: PATIENT'S OWN MEDICATION (NON-FORMULARY) (Cannabidiol (Cbd) [Epidiolex] 100 MG/ML Solution GT SCH (22:00)
[2022-02-03] MEDS: CANNABIDIOL 100 MG/ML GT SCH (22:09)
[2022-02-03] MEDS: [UNRECOGNIZED DRUG - OTHER] GT SCH (22:09)
[2022-02-04] MEDS: GLYCOPYRROLATE 1 MG TABLET GT SCH ×3 (06:43→21:20)
[2022-02-04] MEDS: VALPROATE SODIUM 250 MG/5 ML UNIT DOSE CUP GT SCH ×3 (06:43→21:18)
[2022-02-04] MEDS: LEVOTHYROXINE NA 75 MCG TABLET (FP) GT SCH (06:44)
[2022-02-04 10:01] LABS: HEMATOCRIT 26.9 % (35.4-49); HEMOGLOBIN 8.7 GM/dL (11.7-16.9); MCH 29.6 pg (25.7-33.7); MCHC 32.3 g/dl (32.0-35.9); MEAN CELL VOLUME 91.5 fl (80-96); MEAN PLT VOLUME 6.4 fl (7.5-11.1); PLATELET COUNT 382 10^3/uL (134-434); RBC 2.94 M/mm3 (4.00-5.60); RDW 15.8 % (11.9-15.9); WHITE BLOOD COUNT 6.7 K/mm3 (4.0-10.0)
[2022-02-04 10:30] LABS: CREATININE 0.2 mg/dL (0.55-1.3)
[2022-02-04 10:31] LABS: ALBUMIN 1.8 g/dl (3.4-5.0); BLOOD UREA NITROGEN 8.1 mg/dL (7-18)
[2022-02-04 10:32] LABS: BILIRUBIN,TOTAL 0.2 mg/dL (0.2-1); TOT PROT 6.2 g/dl (6.4-8.2)
[2022-02-04 10:33] LABS: CALCIUM 8.6 mg/dL (8.5-10.1)
[2022-02-04 10:35] LABS: MAGNESIUM 2.3 mg/dL (1.8-2.4)
[2022-02-04] MEDS: levETIRAcetam 500 MG/5 ML ORAL SOLUTION (UNIT-DOSE CUPS) GT SCH ×2 (10:36→14:36)
[2022-02-04] MEDS: FAMOTIDINE 40 MG/5 ML ORAL SUSPENSION GT SCH ×2 (10:36→21:19)
[2022-02-04] MEDS: LACTOBACILLUS ACIDOPHILUS 1 TABLET GT SCH (10:36)
[2022-02-04] MEDS: ENOXAPARIN NA (PORCINE) 40 MG/0.4 ML DISP.SYRIN SQ SCH (10:36)
[2022-02-04 10:51] LABS: ANISOCYTOSIS 0; HELMET CELLS 0; HOWELL-JOLLY BODIES 0; MACROCYTOSIS 0; OVALOCYTE 0; ROULEAU 0; SICKELED CELLS 0; TARGET CELLS 0; TEAR DROP CELLS 0; TOXIC GRANULATION 0
[2022-02-04] MEDS: AZITHROMYCIN IVPB 500 MG/250 ML BAG IVPB SCH (12:32)
[2022-02-04] MEDS: CEFTRIAXONE 1 GM in DEXTROSE 5%-WATER - 50 ML IVPB SCH (12:32)
[2022-02-04] MEDS: [UNRECOGNIZED DRUG - OTHER] GT SCH ×2 (13:07→21:19)
[2022-02-04] MEDS: CANNABIDIOL 100 MG/ML GT SCH ×2 (13:07→21:19)
[2022-02-04] MEDS: FERROUS SO4 300 MG/5 ML ORAL SOLN UNIT DOSE CUPS GT SCH ×2 (14:36→21:19)
[2022-02-04] MEDS: AMOX TR/POTASSIUM CLAVULANATE 600 MG/5 ML GT SCH (19:49)
[2022-02-05 05:06] VITALS: RESP 18
[2022-02-05] MEDS: LEVOTHYROXINE NA 75 MCG TABLET (FP) GT SCH (06:16)
[2022-02-05] MEDS: GLYCOPYRROLATE 1 MG TABLET GT SCH ×2 (06:17→13:25)
[2022-02-05] MEDS: FERROUS SO4 300 MG/5 ML ORAL SOLN UNIT DOSE CUPS GT SCH ×2 (06:17→13:24)
[2022-02-05] MEDS: VALPROATE SODIUM 250 MG/5 ML UNIT DOSE CUP GT SCH ×2 (06:17→13:23)
[2022-02-05 07:47] VITALS: BP 124/62; PULSE 101; TEMP 98
[2022-02-05] MEDS: AMOX TR/POTASSIUM CLAVULANATE 600 MG/5 ML GT SCH (09:30)
[2022-02-05] MEDS: levETIRAcetam 500 MG/5 ML ORAL SOLUTION (UNIT-DOSE CUPS) GT SCH ×2 (09:31→13:24)
[2022-02-05] MEDS: ENOXAPARIN NA (PORCINE) 40 MG/0.4 ML DISP.SYRIN SQ SCH (09:32)
[2022-02-05] MEDS: FAMOTIDINE 40 MG/5 ML ORAL SUSPENSION GT SCH (09:32)
[2022-02-05] MEDS: LACTOBACILLUS ACIDOPHILUS 1 TABLET GT SCH (09:32)
[2022-02-05] MEDS: [UNRECOGNIZED DRUG - OTHER] GT SCH (09:32)
[2022-02-05] MEDS: CANNABIDIOL 100 MG/ML GT SCH (09:32)
[2022-02-05] MEDS ORDERED: FUROSEMIDE 40 MG/5 ML UNIT-DOSE CUP PO ONE (12:49)
== END 2022-02-05 15:36 | disposition home or self-care (01) | DRG 139 ==
LOC: JER 09:48 → INTOOBSV 16:43 → UNDOADMOB 16:43 → JERBED 16:43 → UNDOADMOB 17:25 → JERBED 17:25 → J5S 21:58 → JERBED 21:58 → J5S 01-29 08:43 → INTOOBSV 01-29 08:43 → JERBED 01-29 08:43 → OBSVTOIN 01-29 08:43
PROVIDERS: ADMIT Internal Medicine; ATTEND Nurse Practitioner Family
PROC: 0W993ZZ Drainage of Right Pleural Cavity, Percutaneous Approach (ICD-10-PCS; principal; 2022-01-29)
DX: J18.9 Pneumonia, unspecified organism (principal); G40.834 Dravet syndrome, intractable, without status epilepticus; J90 Pleural effusion, not elsewhere classified; R53.2 Functional quadriplegia; G80.0 Spastic quadriplegic cerebral palsy; L89.611 Pressure ulcer of right heel, stage 1; Z93.1 Gastrostomy status; R06.03 Acute respiratory distress; K21.9 Gastro-esophageal reflux disease without esophagitis; F79 Unspecified intellectual disabilities; D50.9 Iron deficiency anemia, unspecified
CPT/HCPCS: 0241U-QW; 32555; 36415; 70450-TC; 71045-TC-FY; 71046-TC-FY; 71250-TC; 74177-TC; 80053; 81003; 82042; 82150; 82272; 82728; 82803; 82945; 83540; 83550; 83615; 83735; 84100; 84157; 84443; 84478; 84484; 85025; 85610; 85730; 86850; 86900; 86901; 87040; 87070; 87075; 87086; 87102; 87116; 87205; 87206; 87210; 88108; 88305-TC; 93005; 93010; 99285-25; C9803-CS; Q9967; U0003; U0005

== ENCOUNTER 2022-02-08 02:16 | Inpatient (IN) | payer OTHER ==
[2022-02-08] MEDS ORDERED: SODIUM CHLORIDE IV ONE (02:51)
[2022-02-08] MEDS ORDERED: VANCOMYCIN 1 GM in D5W (PRE-DOCKED) 1,000 MG/250 ML IVPB ONE (03:30)
[2022-02-08] MEDS ORDERED: PIPERACILLIN/TAZOB 4.5 GM 4.5 GM in DEXTROSE 5%-WATER 100 ML IVPB ONE (03:30)
[2022-02-08] MEDS ORDERED: AZITHROMYCIN IVPB 500 MG in DEXTROSE 5%-WATER - 250 ML IVPB ONE (03:30)
[2022-02-08] MEDS ORDERED: LORazepam 2 MG/ML SDV VIAL IM ONE (03:45)
[2022-02-08] MEDS ORDERED: VANCOMYCIN/WATER FOR INJ (PEG) 1,000 MG/200 ML BAG IVPB ONE (04:20)
[2022-02-08] MEDS ORDERED: ACETAMINOPHEN 1000 MG/100 ML BAG IVPB ONE (04:38)
[2022-02-08] MEDS ORDERED: ACETAMINOPHEN INJECTION 100 ML IVPB ONE (04:39)
[2022-02-08] MEDS ORDERED: PIPERACILLIN/TAZOB 4.5 GM 4.5 GM/100 ML BAG IVPB ONE ×2 (04:39→08:44)
[2022-02-08] MEDS ORDERED: AZITHROMYCIN IVPB 500 MG/250 ML BAG IVPB ONE (04:40)
[2022-02-08 05:07] LABS: EPI CELLS >36 /uL (0-25.1); HYALINE CASTS 126 /uL (0-3.1); URINE APPEARANCE TURBID; URINE BILIRUBIN 1+ (NEGATIVE); URINE COLOR DK YELLOW; URINE GLUCOSE (UA) NEGATIVE (NEGATIVE); URINE KETONE TRACE (NEGATIVE); URINE LEUK ESTERASE TRACE (NEGATIVE); URINE NITRITE NEGATIVE (NEGATIVE); URINE PROTEIN 2+ (NEGATIVE); URINE RBC 613 /uL (0-23.9); URINE WBC 727 /uL (0-25.8)
[2022-02-08 05:11] LABS: VENOUS O2 SATURATION 96.8 % (70-80); VENOUS PH 7.416 (7.310-7.410)
[2022-02-08 05:23] LABS: CALCIUM 9.2 mg/dL (8.5-10.1)
[2022-02-08 05:24] LABS: INR 1.03 (0.83-1.09); PROTHROMBIN TIME (PATIENT) 11.8 SEC (9.7-13.0)
[2022-02-08 05:27] LABS: ACTIVATED PTT 33.3 SECONDS (25.2-36.5); CREATININE 0.4 mg/dL (0.55-1.3)
[2022-02-08 05:28] LABS: BILIRUBIN,TOTAL 0.5 mg/dL (0.2-1)
[2022-02-08 05:29] LABS: LACTIC ACID 2.1 mmol/L (0.4-2.0); TOT PROT 7.9 g/dl (6.4-8.2)
[2022-02-08 05:50] LABS: HEMATOCRIT 34.3 % (35.4-49); HEMOGLOBIN 10.5 GM/dL (11.7-16.9); MCHC 30.7 g/dl (32.0-35.9); MEAN CELL VOLUME 91.1 fl (80-96); MEAN PLT VOLUME 7.3 fl (7.5-11.1); PLATELET COUNT 756 10^3/uL (134-434); RBC 3.77 M/mm3 (4.00-5.60); RDW 16.5 % (11.9-15.9); WHITE BLOOD COUNT 12.3 K/mm3 (4.0-10.0)
[2022-02-08 05:53] LABS: ALBUMIN 2.5 g/dl (3.4-5.0)
[2022-02-08] MEDS ORDERED: ALBUTEROL SO4 0.083% IH SOL 2.5 MG/3 ML VIAL.NEB. NEB PRN (08:09)
[2022-02-08 08:31] LABS: CALCIUM 8.8 mg/dL (8.5-10.1)
[2022-02-08 08:32] LABS: BLOOD UREA NITROGEN 7.8 mg/dL (7-18)
[2022-02-08 08:35] LABS: CREATININE 0.4 mg/dL (0.55-1.3)
[2022-02-08] MEDS: PIPERACILLIN/TAZOB 4.5 GM 4.5 GM in DEXTROSE 5%-WATER 100 ML IVPB SCH ×4 (09:05→21:13)
[2022-02-08] MEDS: LACTATED RINGERS SOLUTION 1,000 ML IV SCH (10:00)
[2022-02-08] MEDS ORDERED: ENOXAPARIN NA (PORCINE) 40 MG/0.4 ML DISP.SYRIN SQ ONE (10:22)
[2022-02-08] MEDS ORDERED: FAMOTIDINE 20 MG TABLET ONE (10:22)
[2022-02-08] MEDS: ENOXAPARIN NA (PORCINE) 40 MG/0.4 ML DISP.SYRIN SQ SCH (11:08)
[2022-02-08] MEDS: LACTOBACILLUS ACIDOPHILUS 1 TABLET GT SCH (11:08)
[2022-02-08] MEDS: levETIRAcetam 500 MG/5 ML ORAL SOLUTION (UNIT-DOSE CUPS) GT SCH ×2 (11:08→16:52)
[2022-02-08] MEDS: PYRIDOXINE HCL (B-6) 50 MG TABLET (FP) GT SCH (11:09)
[2022-02-08] MEDS: FAMOTIDINE 20 MG TABLET PO SCH ×2 (11:09→21:13)
[2022-02-08] MEDS ORDERED: ACETAMINOPHEN 650 MG/20.3 ML ORAL SOLUTION (CUPS) ONE (11:33)
[2022-02-08 11:39] LABS: ANISOCYTOSIS 2+; MACROCYTOSIS 2+; OVALOCYTE 2+
[2022-02-08] MEDS: ACETAMINOPHEN 650 MG/20.3 ML ORAL SOLUTION (CUPS) GT PRN (11:43)
[2022-02-08] MEDS: PATIENT'S OWN MEDICATION (NON-FORMULARY) (Cannabidiol (Cbd) [Epidiolex] 100 MG/ML Solution GT SCH (13:38)
[2022-02-08 13:45] LABS: URINE BACTERIA 485.1 /uL (0-1359)
[2022-02-08] MEDS: VALPROATE SODIUM 250 MG/5 ML UNIT DOSE CUP GT SCH (14:00)
[2022-02-08] MEDS: GLYCOPYRROLATE 1 MG TABLET GT SCH ×2 (14:30→22:36)
[2022-02-08] MEDS: FERROUS SO4 300 MG/5 ML ORAL SOLN UNIT DOSE CUPS GT SCH ×2 (14:30→21:14)
[2022-02-08] MEDS ORDERED: VANCOMYCIN 1 GM in D5W (PRE-DOCKED) 1,000 MG/250 ML IVPB SCH ×2 (16:00→17:00)
[2022-02-08] MEDS: VANCOMYCIN/WATER FOR INJ (PEG) 1,000 MG/200 ML BAG IVPB SCH (16:50)
[2022-02-09] MEDS: levETIRAcetam 500 MG/5 ML ORAL SOLUTION (UNIT-DOSE CUPS) GT SCH ×3 (02:01→12:32)
[2022-02-09] MEDS: PIPERACILLIN/TAZOB 4.5 GM 4.5 GM in DEXTROSE 5%-WATER 100 ML IVPB SCH ×5 (02:02→21:56)
[2022-02-09] MEDS: FERROUS SO4 300 MG/5 ML ORAL SOLN UNIT DOSE CUPS GT SCH ×3 (05:22→21:57)
[2022-02-09] MEDS: VANCOMYCIN/WATER FOR INJ (PEG) 1,000 MG/200 ML BAG IVPB SCH ×2 (05:22→17:58)
[2022-02-09] MEDS: GLYCOPYRROLATE 1 MG TABLET GT SCH ×3 (05:22→23:27)
[2022-02-09] MEDS: LEVOTHYROXINE NA 50 MCG TABLET (FP) GT SCH (06:12)
[2022-02-09] MEDS: ACETAMINOPHEN 650 MG/20.3 ML ORAL SOLUTION (CUPS) GT PRN ×2 (06:13→13:48)
[2022-02-09] MEDS: VALPROATE SODIUM 250 MG/5 ML UNIT DOSE CUP GT SCH ×3 (06:13→23:27)
[2022-02-09] MEDS: LACTATED RINGERS SOLUTION 1,000 ML IV SCH (08:20)
[2022-02-09 10:39] LABS: HEMOGLOBIN 9.1 GM/dL (11.7-16.9); MCH 28.7 pg (25.7-33.7); MCHC 31.2 g/dl (32.0-35.9); MEAN CELL VOLUME 92.1 fl (80-96); MEAN PLT VOLUME 6.9 fl (7.5-11.1); PLATELET COUNT 636 10^3/uL (134-434); RBC 3.15 M/mm3 (4.00-5.60); RDW 16.4 % (11.9-15.9); WHITE BLOOD COUNT 8.9 K/mm3 (4.0-10.0)
[2022-02-09 10:57] LABS: CALCIUM 8.5 mg/dL (8.5-10.1)
[2022-02-09 10:58] LABS: BLOOD UREA NITROGEN 3.4 mg/dL (7-18); MAGNESIUM 1.9 mg/dL (1.8-2.4)
[2022-02-09 11:01] LABS: CREATININE 0.2 mg/dL (0.55-1.3); PHOSPHOROUS 3.7 mg/dL (2.5-4.9)
[2022-02-09 11:02] LABS: BILIRUBIN,TOTAL 0.4 mg/dL (0.2-1); TOT PROT 6.3 g/dl (6.4-8.2)
[2022-02-09] MEDS: FAMOTIDINE 20 MG TABLET PO SCH ×2 (11:02→21:57)
[2022-02-09] MEDS: ENOXAPARIN NA (PORCINE) 40 MG/0.4 ML DISP.SYRIN SQ SCH (11:03)
[2022-02-09] MEDS: PYRIDOXINE HCL (B-6) 50 MG TABLET (FP) GT SCH (11:03)
[2022-02-09] MEDS: LACTOBACILLUS ACIDOPHILUS 1 TABLET GT SCH (11:14)
[2022-02-09 11:50] LABS: ANISOCYTOSIS 1+; MACROCYTOSIS 0
[2022-02-09 15:12] VITALS: BMI 29.5
[2022-02-09] MEDS: PATIENT'S OWN MEDICATION (NON-FORMULARY) (Cannabidiol (Cbd) [Epidiolex] 100 MG/ML Solution GT SCH ×3 (22:23→23:27)
[2022-02-10] MEDS: PIPERACILLIN/TAZOB 4.5 GM 4.5 GM in DEXTROSE 5%-WATER 100 ML IVPB SCH ×4 (02:52→21:24)
[2022-02-10] MEDS: VANCOMYCIN/WATER FOR INJ (PEG) 1,000 MG/200 ML BAG IVPB SCH ×2 (05:02→17:50)
[2022-02-10] MEDS: GLYCOPYRROLATE 1 MG TABLET GT SCH ×3 (06:13→21:29)
[2022-02-10] MEDS: VALPROATE SODIUM 250 MG/5 ML UNIT DOSE CUP GT SCH ×3 (06:13→21:25)
[2022-02-10] MEDS: LEVOTHYROXINE NA 50 MCG TABLET (FP) GT SCH (06:13)
[2022-02-10 08:44] LABS: HEMATOCRIT 31.2 % (35.4-49); HEMOGLOBIN 9.9 GM/dL (11.7-16.9); MCH 29.1 pg (25.7-33.7); MCHC 31.6 g/dl (32.0-35.9); MEAN PLT VOLUME 6.7 fl (7.5-11.1); PLATELET COUNT 695 10^3/uL (134-434); RBC 3.39 M/mm3 (4.00-5.60); RDW 17.1 % (11.9-15.9); WHITE BLOOD COUNT 8.3 K/mm3 (4.0-10.0)
[2022-02-10 09:19] LABS: ALBUMIN 2.1 g/dl (3.4-5.0); CALCIUM 8.5 mg/dL (8.5-10.1); MAGNESIUM 1.8 mg/dL (1.8-2.4)
[2022-02-10 09:20] LABS: BLOOD UREA NITROGEN 4.6 mg/dL (7-18)
[2022-02-10 09:22] LABS: CREATININE 0.3 mg/dL (0.55-1.3)
[2022-02-10 09:24] LABS: BILIRUBIN,TOTAL 0.2 mg/dL (0.2-1); TOT PROT 6.6 g/dl (6.4-8.2)
[2022-02-10] MEDS: levETIRAcetam 500 MG/5 ML ORAL SOLUTION (UNIT-DOSE CUPS) GT SCH ×2 (10:50→14:00)
[2022-02-10] MEDS: PYRIDOXINE HCL (B-6) 50 MG TABLET (FP) GT SCH (10:52)
[2022-02-10] MEDS: FERROUS SO4 300 MG/5 ML ORAL SOLN UNIT DOSE CUPS GT SCH ×2 (10:52→21:28)
[2022-02-10] MEDS: ENOXAPARIN NA (PORCINE) 40 MG/0.4 ML DISP.SYRIN SQ SCH (10:52)
[2022-02-10] MEDS: LACTATED RINGERS SOLUTION 1,000 ML IV SCH (10:53)
[2022-02-10] MEDS: LACTOBACILLUS ACIDOPHILUS 1 TABLET GT SCH (11:03)
[2022-02-10] MEDS: FAMOTIDINE 20 MG TABLET PO SCH ×2 (11:04→21:28)
[2022-02-10 11:20] LABS: ANISOCYTOSIS 1+; MACROCYTOSIS 1+; PLATELET ESTIMATE INCREASED
[2022-02-10] MEDS: ACETAMINOPHEN 650 MG/20.3 ML ORAL SOLUTION (CUPS) GT PRN (11:25)
[2022-02-10] MEDS: PATIENT'S OWN MEDICATION (NON-FORMULARY) (Cannabidiol (Cbd) [Epidiolex] 100 MG/ML Solution GT SCH ×2 (11:32→21:25)
[2022-02-11] MEDS: PIPERACILLIN/TAZOB 4.5 GM 4.5 GM in DEXTROSE 5%-WATER 100 ML IVPB SCH ×4 (03:40→21:35)
[2022-02-11] MEDS: VANCOMYCIN/WATER FOR INJ (PEG) 1,000 MG/200 ML BAG IVPB SCH (05:12)
[2022-02-11] MEDS: VALPROATE SODIUM 250 MG/5 ML UNIT DOSE CUP GT SCH ×3 (06:32→21:47)
[2022-02-11] MEDS: GLYCOPYRROLATE 1 MG TABLET GT SCH ×3 (06:32→21:48)
[2022-02-11] MEDS: LEVOTHYROXINE NA 50 MCG TABLET (FP) GT SCH (06:33)
[2022-02-11] MEDS: FAMOTIDINE 20 MG TABLET PO SCH ×2 (11:32→21:47)
[2022-02-11] MEDS: LACTOBACILLUS ACIDOPHILUS 1 TABLET GT SCH (11:32)
[2022-02-11] MEDS: FERROUS SO4 300 MG/5 ML ORAL SOLN UNIT DOSE CUPS GT SCH ×2 (11:32→22:23)
[2022-02-11] MEDS: PYRIDOXINE HCL (B-6) 50 MG TABLET (FP) GT SCH (11:33)
[2022-02-11] MEDS: levETIRAcetam 500 MG/5 ML ORAL SOLUTION (UNIT-DOSE CUPS) GT SCH ×2 (11:36→15:16)
[2022-02-11] MEDS: LACTATED RINGERS SOLUTION 1,000 ML IV SCH (11:41)
[2022-02-11] MEDS: ACETAMINOPHEN 650 MG/20.3 ML ORAL SOLUTION (CUPS) GT PRN (11:51)
[2022-02-11] MEDS: PATIENT'S OWN MEDICATION (NON-FORMULARY) (Cannabidiol (Cbd) [Epidiolex] 100 MG/ML Solution GT SCH ×2 (14:22→22:23)
[2022-02-11 15:37] LABS: HEMATOCRIT 28.7 % (35.4-49); HEMOGLOBIN 9.1 GM/dL (11.7-16.9); MCH 29.1 pg (25.7-33.7); MCHC 31.8 g/dl (32.0-35.9); MEAN CELL VOLUME 91.5 fl (80-96); MEAN PLT VOLUME 6.7 fl (7.5-11.1); PLATELET COUNT 582 10^3/uL (134-434); RBC 3.14 M/mm3 (4.00-5.60); RDW 16.9 % (11.9-15.9); WHITE BLOOD COUNT 8.4 K/mm3 (4.0-10.0)
[2022-02-11 15:47] LABS: BF WBC & OTHER NUCLEATED CELLS 1362 /mm3
[2022-02-11 15:54] LABS: CALCIUM 8.6 mg/dL (8.5-10.1)
[2022-02-11 15:55] LABS: BLOOD UREA NITROGEN 5.3 mg/dL (7-18); INR 1.13 (0.83-1.09); MAGNESIUM 2.1 mg/dL (1.8-2.4)
[2022-02-11 15:58] LABS: CREATININE 0.3 mg/dL (0.55-1.3)
[2022-02-11 15:59] LABS: BILIRUBIN,TOTAL 0.3 mg/dL (0.2-1)
[2022-02-11] MEDS: VANCOMYCIN/WATER 1250 MG 1,250 MG/250 ML BAG IVPB SCH (17:55)
[2022-02-11 18:21] LABS: BODY FLUID MACROPHAGES 3 %; BODY FLUID MONOCYTE 4 %; BODYL FLD EOSINOPHIL 1 %
[2022-02-11 19:10] LABS: ANISOCYTOSIS 2+; MACROCYTOSIS 1+; PLATELET ESTIMATE INCREASED
[2022-02-12] MEDS: PIPERACILLIN/TAZOB 4.5 GM 4.5 GM in DEXTROSE 5%-WATER 100 ML IVPB SCH ×4 (02:06→21:34)
[2022-02-12] MEDS: VANCOMYCIN/WATER 1250 MG 1,250 MG/250 ML BAG IVPB SCH ×2 (04:39→17:42)
[2022-02-12] MEDS: GLYCOPYRROLATE 1 MG TABLET GT SCH ×3 (07:06→21:36)
[2022-02-12] MEDS: VALPROATE SODIUM 250 MG/5 ML UNIT DOSE CUP GT SCH ×3 (07:07→21:35)
[2022-02-12] MEDS: LEVOTHYROXINE NA 50 MCG TABLET (FP) GT SCH (07:07)
[2022-02-12] MEDS: levETIRAcetam 500 MG/5 ML ORAL SOLUTION (UNIT-DOSE CUPS) GT SCH ×2 (10:21→14:32)
[2022-02-12] MEDS: ACETAMINOPHEN 650 MG/20.3 ML ORAL SOLUTION (CUPS) GT PRN (10:22)
[2022-02-12] MEDS: LACTOBACILLUS ACIDOPHILUS 1 TABLET GT SCH (10:23)
[2022-02-12] MEDS: PYRIDOXINE HCL (B-6) 50 MG TABLET (FP) GT SCH (10:24)
[2022-02-12] MEDS: FAMOTIDINE 20 MG TABLET PO SCH ×2 (10:24→23:20)
[2022-02-12] MEDS: FERROUS SO4 300 MG/5 ML ORAL SOLN UNIT DOSE CUPS GT SCH ×2 (10:24→21:35)
[2022-02-12] MEDS: PATIENT'S OWN MEDICATION (NON-FORMULARY) (Cannabidiol (Cbd) [Epidiolex] 100 MG/ML Solution GT SCH ×2 (11:42→22:49)
[2022-02-12 14:09] LABS: BODY FLUID ALBUMIN 1.4 g/dL (Not Estab.)
[2022-02-12] MEDS ORDERED: FAMOTIDINE 40 MG/5 ML ORAL SUSPENSION PO SCH (22:42)
[2022-02-13] MEDS: ACETAMINOPHEN 650 MG/20.3 ML ORAL SOLUTION (CUPS) GT PRN ×3 (00:22→18:28)
[2022-02-13] MEDS: PIPERACILLIN/TAZOB 4.5 GM 4.5 GM in DEXTROSE 5%-WATER 100 ML IVPB SCH ×4 (03:10→23:03)
[2022-02-13] MEDS: LEVOTHYROXINE NA 75 MCG TABLET (FP) GT SCH (06:56)
[2022-02-13] MEDS: GLYCOPYRROLATE 1 MG TABLET GT SCH ×3 (06:57→23:17)
[2022-02-13] MEDS: VALPROATE SODIUM 250 MG/5 ML UNIT DOSE CUP GT SCH ×3 (06:58→23:14)
[2022-02-13] MEDS: VANCOMYCIN/WATER 1250 MG 1,250 MG/250 ML BAG IVPB SCH ×3 (07:49→18:34)
[2022-02-13 08:36] LABS: HEMOGLOBIN 10.8 GM/dL (11.7-16.9); MCH 29.3 pg (25.7-33.7); MCHC 31.7 g/dl (32.0-35.9); MEAN CELL VOLUME 92.5 fl (80-96); MEAN PLT VOLUME 6.7 fl (7.5-11.1); PLATELET COUNT 538 10^3/uL (134-434); RBC 3.67 M/mm3 (4.00-5.60); RDW 17.6 % (11.9-15.9); WHITE BLOOD COUNT 5.8 K/mm3 (4.0-10.0)
[2022-02-13 08:50] LABS: BLOOD UREA NITROGEN 4.2 mg/dL (7-18)
[2022-02-13 08:51] LABS: CALCIUM 8.5 mg/dL (8.5-10.1)
[2022-02-13 08:52] LABS: MAGNESIUM 2.1 mg/dL (1.8-2.4)
[2022-02-13 08:55] LABS: CREATININE 0.3 mg/dL (0.55-1.3)
[2022-02-13 08:56] LABS: BILIRUBIN,TOTAL 0.3 mg/dL (0.2-1); TOT PROT 6.6 g/dl (6.4-8.2)
[2022-02-13] MEDS: levETIRAcetam 500 MG/5 ML ORAL SOLUTION (UNIT-DOSE CUPS) GT SCH ×2 (09:16→15:00)
[2022-02-13] MEDS: LACTOBACILLUS ACIDOPHILUS 1 TABLET GT SCH (09:16)
[2022-02-13] MEDS: ENOXAPARIN NA (PORCINE) 40 MG/0.4 ML DISP.SYRIN SQ SCH (09:17)
[2022-02-13] MEDS: FERROUS SO4 300 MG/5 ML ORAL SOLN UNIT DOSE CUPS GT SCH ×2 (09:17→23:14)
[2022-02-13] MEDS: PYRIDOXINE HCL (B-6) 50 MG TABLET (FP) GT SCH (09:18)
[2022-02-13] MEDS: FAMOTIDINE 40 MG/5 ML ORAL SUSPENSION GT SCH ×2 (10:00→23:20)
[2022-02-13 10:12] LABS: ANISOCYTOSIS 2+; MACROCYTOSIS 0; OVALOCYTE 1+; TEAR DROP CELLS 1+
[2022-02-13] MEDS: PATIENT'S OWN MEDICATION (NON-FORMULARY) (Cannabidiol (Cbd) [Epidiolex] 100 MG/ML Solution GT SCH ×2 (12:12→23:53)
[2022-02-14] MEDS: PIPERACILLIN/TAZOB 4.5 GM 4.5 GM in DEXTROSE 5%-WATER 100 ML IVPB SCH ×4 (03:21→22:54)
[2022-02-14] MEDS: GLYCOPYRROLATE 1 MG TABLET GT SCH ×3 (06:50→22:56)
[2022-02-14] MEDS: LEVOTHYROXINE NA 75 MCG TABLET (FP) GT SCH (06:51)
[2022-02-14] MEDS: VALPROATE SODIUM 250 MG/5 ML UNIT DOSE CUP GT SCH ×3 (06:52→22:55)
[2022-02-14] MEDS: VANCOMYCIN/WATER 1250 MG 1,250 MG/250 ML BAG IVPB SCH ×2 (08:01→18:14)
[2022-02-14] MEDS: ACETAMINOPHEN 650 MG/20.3 ML ORAL SOLUTION (CUPS) GT PRN ×2 (08:04→18:13)
[2022-02-14] MEDS: levETIRAcetam 500 MG/5 ML ORAL SOLUTION (UNIT-DOSE CUPS) GT SCH ×2 (08:04→13:12)
[2022-02-14] MEDS ORDERED: IBUPROFEN 800 MG/8 ML IJ IVPB ONE (08:33)
[2022-02-14] MEDS: ENOXAPARIN NA (PORCINE) 40 MG/0.4 ML DISP.SYRIN SQ SCH (10:58)
[2022-02-14] MEDS: PATIENT'S OWN MEDICATION (NON-FORMULARY) (Cannabidiol (Cbd) [Epidiolex] 100 MG/ML Solution GT SCH ×2 (10:59→22:54)
[2022-02-14] MEDS: LACTOBACILLUS ACIDOPHILUS 1 TABLET GT SCH (10:59)
[2022-02-14] MEDS: FERROUS SO4 300 MG/5 ML ORAL SOLN UNIT DOSE CUPS GT SCH ×2 (10:59→22:55)
[2022-02-14] MEDS: FAMOTIDINE 40 MG/5 ML ORAL SUSPENSION GT SCH ×2 (11:00→22:56)
[2022-02-14] MEDS: PYRIDOXINE HCL (B-6) 50 MG TABLET (FP) GT SCH (13:16)
[2022-02-14] MEDS: AMINO ACIDS/PROTEIN HYDROLYS 30 ML LIQUID.PKT GT SCH (18:10)
[2022-02-15] MEDS: PIPERACILLIN/TAZOB 4.5 GM 4.5 GM in DEXTROSE 5%-WATER 100 ML IVPB SCH ×3 (03:38→16:06)
[2022-02-15] MEDS: GLYCOPYRROLATE 1 MG TABLET GT SCH ×3 (06:44→22:58)
[2022-02-15] MEDS: LEVOTHYROXINE NA 75 MCG TABLET (FP) GT SCH (06:45)
[2022-02-15] MEDS: VANCOMYCIN/WATER 1250 MG 1,250 MG/250 ML BAG IVPB SCH (06:46)
[2022-02-15] MEDS: VALPROATE SODIUM 250 MG/5 ML UNIT DOSE CUP GT SCH ×3 (06:46→22:57)
[2022-02-15] MEDS: FERROUS SO4 300 MG/5 ML ORAL SOLN UNIT DOSE CUPS GT SCH ×2 (09:56→22:57)
[2022-02-15] MEDS: LACTOBACILLUS ACIDOPHILUS 1 TABLET GT SCH (09:56)
[2022-02-15] MEDS: AMINO ACIDS/PROTEIN HYDROLYS 30 ML LIQUID.PKT GT SCH ×3 (09:56→18:03)
[2022-02-15] MEDS: levETIRAcetam 500 MG/5 ML ORAL SOLUTION (UNIT-DOSE CUPS) GT SCH ×2 (09:56→13:41)
[2022-02-15] MEDS: FAMOTIDINE 40 MG/5 ML ORAL SUSPENSION GT SCH ×2 (09:57→22:58)
[2022-02-15] MEDS: ENOXAPARIN NA (PORCINE) 40 MG/0.4 ML DISP.SYRIN SQ SCH (09:57)
[2022-02-15] MEDS: PYRIDOXINE HCL (B-6) 50 MG TABLET (FP) GT SCH (09:58)
[2022-02-15] MEDS: PATIENT'S OWN MEDICATION (NON-FORMULARY) (Cannabidiol (Cbd) [Epidiolex] 100 MG/ML Solution GT SCH ×2 (13:42→22:57)
[2022-02-15] MEDS: ACETAMINOPHEN 650 MG/20.3 ML ORAL SOLUTION (CUPS) GT PRN ×2 (14:51→22:58)
[2022-02-15] MEDS: NYSTATIN 100,000 UNIT/GM TOPICAL CREAM 15 GM TUBE TP SCH (22:57)
[2022-02-15] MEDS: NYSTATIN POWDER 100,000 UNITS/GM - 15 GM TOPICAL POWDER TP SCH (22:58)
[2022-02-16] MEDS: ACETAMINOPHEN 650 MG/20.3 ML ORAL SOLUTION (CUPS) GT PRN ×2 (05:40→22:51)
[2022-02-16] MEDS: GLYCOPYRROLATE 1 MG TABLET GT SCH ×3 (05:40→22:51)
[2022-02-16] MEDS: LEVOTHYROXINE NA 75 MCG TABLET (FP) GT SCH (06:03)
[2022-02-16] MEDS: VALPROATE SODIUM 250 MG/5 ML UNIT DOSE CUP GT SCH ×3 (06:03→22:48)
[2022-02-16] MEDS: levETIRAcetam 500 MG/5 ML ORAL SOLUTION (UNIT-DOSE CUPS) GT SCH ×2 (08:32→13:00)
[2022-02-16] MEDS: AMINO ACIDS/PROTEIN HYDROLYS 30 ML LIQUID.PKT GT SCH ×3 (08:32→17:20)
[2022-02-16] MEDS ORDERED: SULFAMETHOXAZOLE/TMP 200MG-40MG/5ML GT SCH (10:00)
[2022-02-16] MEDS: LACTOBACILLUS ACIDOPHILUS 1 TABLET GT SCH (10:06)
[2022-02-16] MEDS: ENOXAPARIN NA (PORCINE) 40 MG/0.4 ML DISP.SYRIN SQ SCH (10:06)
[2022-02-16] MEDS: SULFAMETHOXAZOLE/TMP 200MG-40MG/5ML GT SCH ×2 (10:07→22:49)
[2022-02-16] MEDS: FERROUS SO4 300 MG/5 ML ORAL SOLN UNIT DOSE CUPS GT SCH ×2 (10:07→22:50)
[2022-02-16] MEDS: FAMOTIDINE 40 MG/5 ML ORAL SUSPENSION GT SCH ×2 (10:08→22:48)
[2022-02-16] MEDS: PYRIDOXINE HCL (B-6) 50 MG TABLET (FP) GT SCH (10:09)
[2022-02-16] MEDS: NYSTATIN POWDER 100,000 UNITS/GM - 15 GM TOPICAL POWDER TP SCH ×2 (10:11→23:11)
[2022-02-16] MEDS: NYSTATIN 100,000 UNIT/GM TOPICAL CREAM 15 GM TUBE TP SCH ×2 (10:12→23:11)
[2022-02-16] MEDS: PATIENT'S OWN MEDICATION (NON-FORMULARY) (Cannabidiol (Cbd) [Epidiolex] 100 MG/ML Solution GT SCH ×2 (12:12→22:47)
[2022-02-16] MEDS ORDERED: REMDESIVIR 200 MG in SODIUM CHLORIDE 250 ML IVPB ONE (15:32)
[2022-02-17] MEDS: MINERAL OIL/PET HY-PHL TOPICAL OINTMENT 454 GM JAR TP SCH ×3 (02:49→23:38)
[2022-02-17] MEDS: GLYCOPYRROLATE 1 MG TABLET GT SCH ×3 (05:50→21:55)
[2022-02-17] MEDS: ACETAMINOPHEN 650 MG/20.3 ML ORAL SOLUTION (CUPS) GT PRN ×2 (05:50→22:11)
[2022-02-17] MEDS: LEVOTHYROXINE NA 75 MCG TABLET (FP) GT SCH (06:11)
[2022-02-17] MEDS: VALPROATE SODIUM 250 MG/5 ML UNIT DOSE CUP GT SCH ×3 (06:11→21:51)
[2022-02-17] MEDS: AMINO ACIDS/PROTEIN HYDROLYS 30 ML LIQUID.PKT GT SCH ×3 (10:38→17:53)
[2022-02-17] MEDS: levETIRAcetam 500 MG/5 ML ORAL SOLUTION (UNIT-DOSE CUPS) GT SCH ×2 (10:38→13:14)
[2022-02-17] MEDS: LACTOBACILLUS ACIDOPHILUS 1 TABLET GT SCH (10:39)
[2022-02-17] MEDS: SULFAMETHOXAZOLE/TMP 200MG-40MG/5ML GT SCH ×2 (10:39→21:58)
[2022-02-17] MEDS: ENOXAPARIN NA (PORCINE) 40 MG/0.4 ML DISP.SYRIN SQ SCH (10:40)
[2022-02-17] MEDS: PYRIDOXINE HCL (B-6) 50 MG TABLET (FP) GT SCH (10:41)
[2022-02-17] MEDS: FAMOTIDINE 40 MG/5 ML ORAL SUSPENSION GT SCH ×2 (10:41→21:54)
[2022-02-17] MEDS: NYSTATIN POWDER 100,000 UNITS/GM - 15 GM TOPICAL POWDER TP SCH ×2 (10:41→23:39)
[2022-02-17] MEDS: NYSTATIN 100,000 UNIT/GM TOPICAL CREAM 15 GM TUBE TP SCH ×2 (10:41→23:38)
[2022-02-17] MEDS: PATIENT'S OWN MEDICATION (NON-FORMULARY) (Cannabidiol (Cbd) [Epidiolex] 100 MG/ML Solution GT SCH ×2 (12:39→22:00)
[2022-02-17] MEDS: REMDESIVIR 100 MG in SODIUM CHLORIDE 250 ML IVPB SCH (12:39)
[2022-02-17] MEDS: FERROUS SO4 300 MG/5 ML ORAL SOLN UNIT DOSE CUPS GT SCH ×2 (12:39→21:54)
[2022-02-18] MEDS: LEVOTHYROXINE NA 75 MCG TABLET (FP) GT SCH (06:02)
[2022-02-18] MEDS: ACETAMINOPHEN 650 MG/20.3 ML ORAL SOLUTION (CUPS) GT PRN ×2 (06:02→11:43)
[2022-02-18] MEDS: GLYCOPYRROLATE 1 MG TABLET GT SCH ×2 (06:02→14:51)
[2022-02-18] MEDS: VALPROATE SODIUM 250 MG/5 ML UNIT DOSE CUP GT SCH ×2 (06:02→11:36)
[2022-02-18] MEDS ORDERED: DEXTROSE 5%-WATER - 1,000 ML IV SCH (08:00)
[2022-02-18 10:28] LABS: HEMATOCRIT 36.3 % (35.4-49); HEMOGLOBIN 11.4 GM/dL (11.7-16.9); MCH 29.4 pg (25.7-33.7); MCHC 31.5 g/dl (32.0-35.9); MEAN CELL VOLUME 93.5 fl (80-96); MEAN PLT VOLUME 7.5 fl (7.5-11.1); PLATELET COUNT 389 10^3/uL (134-434); RBC 3.88 M/mm3 (4.00-5.60); RDW 19.2 % (11.9-15.9); WHITE BLOOD COUNT 7.1 K/mm3 (4.0-10.0)
[2022-02-18 11:21] LABS: ALBUMIN 2.1 g/dl (3.4-5.0); BLOOD UREA NITROGEN 8.6 mg/dL (7-18); CALCIUM 8.6 mg/dL (8.5-10.1); MAGNESIUM 1.8 mg/dL (1.8-2.4)
[2022-02-18 11:24] LABS: CREATININE 0.3 mg/dL (0.55-1.3)
[2022-02-18 11:26] LABS: BILIRUBIN,TOTAL 0.2 mg/dL (0.2-1); TOT PROT 6.6 g/dl (6.4-8.2)
[2022-02-18] MEDS ORDERED: DEXTROSE 50%-WATER 25 GM/50 ML DISP.SYRIN IVPUSH ONE (11:26)
[2022-02-18] MEDS: REMDESIVIR 100 MG in SODIUM CHLORIDE 250 ML IVPB SCH (11:26)
[2022-02-18] MEDS: AMINO ACIDS/PROTEIN HYDROLYS 30 ML LIQUID.PKT GT SCH ×2 (11:35→14:50)
[2022-02-18] MEDS: levETIRAcetam 500 MG/5 ML ORAL SOLUTION (UNIT-DOSE CUPS) GT SCH ×2 (11:37→14:50)
[2022-02-18] MEDS: LACTOBACILLUS ACIDOPHILUS 1 TABLET GT SCH (11:37)
[2022-02-18] MEDS: FERROUS SO4 300 MG/5 ML ORAL SOLN UNIT DOSE CUPS GT SCH (11:39)
[2022-02-18] MEDS: FAMOTIDINE 40 MG/5 ML ORAL SUSPENSION GT SCH (11:40)
[2022-02-18] MEDS: PYRIDOXINE HCL (B-6) 50 MG TABLET (FP) GT SCH (11:41)
[2022-02-18] MEDS: NYSTATIN POWDER 100,000 UNITS/GM - 15 GM TOPICAL POWDER TP SCH (11:59)
[2022-02-18] MEDS: NYSTATIN 100,000 UNIT/GM TOPICAL CREAM 15 GM TUBE TP SCH (11:59)
[2022-02-18] MEDS: MINERAL OIL/PET HY-PHL TOPICAL OINTMENT 454 GM JAR TP SCH (12:00)
[2022-02-18 12:06] LABS: ANISOCYTOSIS 0; MACROCYTOSIS 1+
[2022-02-18] MEDS: SULFAMETHOXAZOLE/TMP 200MG-40MG/5ML GT SCH (12:26)
[2022-02-18] MEDS: PATIENT'S OWN MEDICATION (NON-FORMULARY) (Cannabidiol (Cbd) [Epidiolex] 100 MG/ML Solution GT SCH (14:46)
[2022-02-18] MEDS: ENOXAPARIN NA (PORCINE) 40 MG/0.4 ML DISP.SYRIN SQ SCH (14:47)
[2022-02-18 17:28] VITALS: BP 103/59; PULSE 119; RESP 18; TEMP 97.6
== END 2022-02-18 06:00 | disposition home or self-care (01) | DRG 143 ==
LOC: JER 02:16 → JERBED 05:40 → J5S 16:38 → J8W 02-09 16:42
PROVIDERS: ADMIT Internal Medicine; ATTEND Nurse Practitioner Family
PROC: 0W9930Z Drainage of Right Pleural Cavity with Drainage Device, Percutaneous Approach (ICD-10-PCS; principal; 2022-02-11)
PROC: XW033E5 Introduction of Remdesivir Anti-infective into Peripheral Vein, Percutaneous Approach, New Technology Group 5 (ICD-10-PCS; 2022-02-16)
DX: J90 Pleural effusion, not elsewhere classified (principal); U07.1 COVID-19; G40.834 Dravet syndrome, intractable, without status epilepticus; E46 Unspecified protein-calorie malnutrition; E87.2 Acidosis; G80.0 Spastic quadriplegic cerebral palsy; Z93.1 Gastrostomy status; D50.9 Iron deficiency anemia, unspecified; F79 Unspecified intellectual disabilities; K21.9 Gastro-esophageal reflux disease without esophagitis; D72.829 Elevated white blood cell count, unspecified; E03.9 Hypothyroidism, unspecified
CPT/HCPCS: 0241U-QW; 32557; 36415; 71045-TC-FY; 71046-TC-FY; 71250-TC; 80048; 80053; 80164; 80177; 81003; 82042; 82150; 82550; 82553; 82803; 82945; 82962; 83605; 83615; 83735; 83986; 84100; 84157; 84478; 84484; 85025; 85610; 85730; 86140; 86850; 86900; 86901; 87040; 87070; 87075; 87081; 87086; 87102; 87116; 87186; 87205; 87206; 87210; 87899; 93005; 93010; 99285-25; C9399; C9803-CS; G0480; U0003; U0005

== ENCOUNTER 2023-06-24 23:49 | Inpatient (IN) | payer OTHER ==
[2023-06-25 04:46] LABS: HEMATOCRIT 36.9 % (35.4-49); HEMOGLOBIN 12.3 GM/dL (11.7-16.9); MCH 33.3 pg (25.7-33.7); MCHC 33.3 g/dl (32.0-35.9); MEAN CELL VOLUME 99.9 fl (80-96); MEAN PLT VOLUME 7.3 fl (7.5-11.1); PLATELET COUNT 199 10^3/uL (134-434); RBC 3.69 M/mm3 (4.00-5.60); RDW 14.9 % (11.9-15.9); WHITE BLOOD COUNT 6.8 K/mm3 (4.0-10.0)
[2023-06-25] MEDS ORDERED: PIPERACILLIN/TAZOB 3.375 GM 3.375 GM/50 ML BAG IVPB ONE ×2 (05:06→17:58)
[2023-06-25] MEDS ORDERED: ACETAMINOPHEN INJECTION 100 ML IVPB ONE (05:06)
[2023-06-25] MEDS: ACETAMINOPHEN 1000 MG/100 ML BAG IVPB ONE (05:08)
[2023-06-25] MEDS: PIPERACILLIN/TAZOB 3.375 GM 3.375 GM in DEXTROSE 5%-WATER - 50 ML IVPB ONE (05:19)
[2023-06-25 05:56] LABS: POTASSIUM 4.1 mmol/L (3.5-5.1)
[2023-06-25 05:58] LABS: ALBUMIN 2.4 g/dl (3.4-5.0); BLOOD UREA NITROGEN 8.1 mg/dL (7-18); CALCIUM 9.3 mg/dL (8.5-10.1)
[2023-06-25 06:01] LABS: CREATININE 0.3 mg/dL (0.55-1.3)
[2023-06-25 06:03] LABS: BILIRUBIN,TOTAL 1.8 mg/dL (0.2-1); TOT PROT 7.5 g/dl (6.4-8.2)
[2023-06-25 07:08] LABS: ANISOCYTOSIS 2+; MACROCYTOSIS 0
[2023-06-25] MEDS ORDERED: ACETAMINOPHEN 160 MG/5 ML *Children Solution GT PRN ×2 (08:52→10:00)
[2023-06-25] MEDS ORDERED: ALBUTEROL SO4 0.083% IH SOL 2.5 MG/3 ML VIAL.NEB. NEB PRN (08:52)
[2023-06-25 09:27] LABS: BILIRUBIN,DIRECT 1.3 mg/dL (0.0-0.2)
[2023-06-25] MEDS: DOCUSATE NA 100 MG/10 ML UNIT-DOSE CUPS PO SCH (11:17)
[2023-06-25] MEDS: FERROUS SO4 15 MG/ML *PEDIATRIC* ORAL SOLN- 50ML BTL GT SCH (11:17)
[2023-06-25] MEDS: FAMOTIDINE 20 MG/2.5 ML ORAL LIQUID GT SCH (11:17)
[2023-06-25] MEDS: PYRIDOXINE HCL (B-6) 50 MG TABLET (FP) GT SCH (11:18)
[2023-06-25] MEDS: SODIUM CHLORIDE 1 GM TABLET GT SCH (11:19)
[2023-06-25] MEDS: LACTATED RINGERS SOLUTION 1,000 ML/1,000 ML INFUS.BAG IV SCH (11:21)
[2023-06-25] MEDS: HEPARIN NA (PORCINE) 5,000 UNITS/ML 1ML VIAL SQ SCH (11:28)
[2023-06-25] MEDS: POLYETHYLENE GLYCOL (HEALTHYLAX) 3350 17 GM PACKET GT SCH (11:28)
[2023-06-25] MEDS: LEVOTHYROXINE NA 75 MCG TABLET (FP) GT SCH (11:28)
[2023-06-25] MEDS: MULTIVITAMINS (DAILY MVI) TABLET (FP) PO SCH (11:29)
[2023-06-25] MEDS: PIPERACILLIN/TAZOB 3.375 GM 3.375 GM in DEXTROSE 5%-WATER - 50 ML IVPB SCH ×2 (11:29→17:57)
[2023-06-25] MEDS: GLYCOPYRROLATE 1 MG TABLET GT SCH (16:09)
[2023-06-25] MEDS: VALPROATE SODIUM 250 MG/5 ML UNIT DOSE CUP PO SCH (16:09)
[2023-06-25] MEDS: levETIRAcetam 500 MG/5 ML ORAL SOLUTION (UNIT-DOSE CUPS) GT SCH ×2 (16:09→21:24)
[2023-06-25] MEDS: SENNOSIDES 8.8 MG/5 ML SYRUP PO SCH (21:24)
[2023-06-25] MEDS ORDERED: HEPARIN NA (PORCINE) 5,000 UNITS/ML 1ML VIAL ONE (21:25)
[2023-06-26 04:27] VITALS: BMI 30.2
[2023-06-26 09:33] LABS: HEMATOCRIT 29.9 % (35.4-49); MCH 33.9 pg (25.7-33.7); MCHC 33.3 g/dl (32.0-35.9); MEAN CELL VOLUME 101.8 fl (80-96); PLATELET COUNT 274 10^3/uL (134-434); RBC 2.93 M/mm3 (4.00-5.60); RDW 14.6 % (11.9-15.9); WHITE BLOOD COUNT 7.6 K/mm3 (4.0-10.0)
[2023-06-26] MEDS: FUROSEMIDE 40 MG/4 ML INJECTABLE VIAL IVPUSH ONE (09:44)
[2023-06-26 09:45] LABS: POTASSIUM 3.5 mmol/L (3.5-5.1)
[2023-06-26 09:47] LABS: CALCIUM 8.8 mg/dL (8.5-10.1)
[2023-06-26 09:48] LABS: BLOOD UREA NITROGEN 11.4 mg/dL (7-18)
[2023-06-26 09:51] LABS: CREATININE 0.3 mg/dL (0.55-1.3)
[2023-06-26 09:52] LABS: ALBUMIN 2.2 g/dl (3.4-5.0)
[2023-06-26 09:55] LABS: BILIRUBIN,DIRECT 1.8 mg/dL (0.0-0.2); TOT PROT 6.6 g/dl (6.4-8.2)
[2023-06-26 09:58] LABS: BILIRUBIN,TOTAL 2.2 mg/dL (0.2-1)
[2023-06-26 12:24] LABS: ANISOCYTOSIS 0; HELMET CELLS 0; HOWELL-JOLLY BODIES 0; MACROCYTOSIS 0; OVALOCYTE 0; ROULEAU 0; SICKELED CELLS 0; TARGET CELLS 0; TEAR DROP CELLS 0; TOXIC GRANULATION 0
[2023-06-26] MEDS: AMINO ACIDS 4.25%/D5W 1,000 ML IV SCH (12:24)
[2023-06-26] MEDS: MINERAL OIL/PET HY-PHL TOPICAL OINTMENT 454 GM JAR TP SCH (22:30)
[2023-06-26] MEDS: HEPARIN NA (PORCINE) 5,000 UNITS/ML 1ML VIAL SQ SCH (22:32)
[2023-06-26] MEDS: BACITRACIN ZINC 15 GM TUBE TOPICAL OINTMENT TP SCH (22:32)
[2023-06-27 08:57] LABS: HEMATOCRIT 30.6 % (35.4-49); MCH 32.9 pg (25.7-33.7); MCHC 32.7 g/dl (32.0-35.9); MEAN CELL VOLUME 100.5 fl (80-96); MEAN PLT VOLUME 6.5 fl (7.5-11.1); PLATELET COUNT 421 10^3/uL (134-434); RBC 3.05 M/mm3 (4.00-5.60); RDW 15.2 % (11.9-15.9); WHITE BLOOD COUNT 7.7 K/mm3 (4.0-10.0)
[2023-06-27 09:00] LABS: INR 1.34 (0.83-1.09); PROTHROMBIN TIME (PATIENT) 15.5 SEC (9.7-13.0)
[2023-06-27 09:27] LABS: POTASSIUM 3.3 mmol/L (3.5-5.1)
[2023-06-27 09:34] LABS: CALCIUM 9.3 mg/dL (8.5-10.1)
[2023-06-27 09:35] LABS: ALBUMIN 2.2 g/dl (3.4-5.0); MAGNESIUM 2.3 mg/dL (1.8-2.4)
[2023-06-27 09:38] LABS: CREATININE 0.3 mg/dL (0.55-1.3)
[2023-06-27 09:39] LABS: BILIRUBIN,TOTAL 2.4 mg/dL (0.2-1); TOT PROT 6.9 g/dl (6.4-8.2)
[2023-06-27 11:29] LABS: ANISOCYTOSIS 1+; MACROCYTOSIS 1+
[2023-06-27] MEDS: ENOXAPARIN NA (PORCINE) 40 MG/0.4 ML DISP.SYRIN SQ SCH (13:59)
[2023-06-27] MEDS ORDERED: ALBUTEROL SO4 0.083% IH SOL 2.5 MG/3 ML VIAL.NEB. NEB PRN (14:03)
[2023-06-27] MEDS: levETIRAcetam 500 MG/5 ML ORAL SOLUTION (UNIT-DOSE CUPS) GT SCH (15:57)
[2023-06-27] MEDS: GLYCOPYRROLATE 1 MG TABLET GT SCH (16:03)
[2023-06-27] MEDS: VALPROATE SODIUM 250 MG/5 ML UNIT DOSE CUP PO SCH (16:04)
[2023-06-27] MEDS: [UNRECOGNIZED DRUG - REMARK] IV SCH (17:21)
[2023-06-27] MEDS: AMINO ACIDS 4.25%/D5W 1,000 ML IV SCH (17:22)
[2023-06-27] MEDS: PIPERACILLIN/TAZOB 3.375 GM 3.375 GM in DEXTROSE 5%-WATER - 50 ML IVPB SCH (17:52)
[2023-06-27] MEDS ORDERED: VALPROATE SODIUM 500 MG/5 ML VIAL IVPB SCH (20:15)
[2023-06-27] MEDS ORDERED: ACETAMINOPHEN IVPB ONE (20:30)
[2023-06-27] MEDS ORDERED: ACETAMINOPHEN 1000 MG/100 ML BAG IVPB ONE (20:30)
[2023-06-27] MEDS: levETIRAcetam 500 MG/5 ML INJECTION VIAL IVPB SCH (21:46)
[2023-06-27] MEDS: ACETAMINOPHEN 1000 MG/100 ML BAG IVPB ONE (21:47)
[2023-06-27] MEDS: FAMOTIDINE 20 MG/2.5 ML ORAL LIQUID GT SCH (21:48)
[2023-06-27] MEDS: SENNOSIDES 8.8 MG/5 ML SYRUP PO SCH (21:48)
[2023-06-27] MEDS: SODIUM CHLORIDE 1 GM TABLET GT SCH (21:49)
[2023-06-27] MEDS ORDERED: VALPROATE SODIUM 250 MG/5 ML UNIT DOSE CUP PO SCH (22:00)
[2023-06-27] MEDS ORDERED: levETIRAcetam 500 MG/5 ML ORAL SOLUTION (UNIT-DOSE CUPS) GT SCH ×2 (22:00)
[2023-06-27] MEDS ORDERED: GLYCOPYRROLATE 1 MG TABLET GT SCH (22:00)
[2023-06-27] MEDS: CANNABIDIOL 100 MG/ML GT SCH (22:44)
[2023-06-27] MEDS: VALPROATE SODIUM INJECTION 500 MG in SODIUM CHLORIDE 100 ML IVPB SCH (22:44)
[2023-06-28] MEDS: levETIRAcetam 500 MG/5 ML INJECTION VIAL IVPB SCH (06:23)
[2023-06-28] MEDS: LEVOTHYROXINE NA 75 MCG TABLET (FP) GT SCH (06:26)
[2023-06-28 07:50] LABS: HEMATOCRIT 29.5 % (35.4-49); HEMOGLOBIN 9.6 GM/dL (11.7-16.9); MCH 33.3 pg (25.7-33.7); MCHC 32.6 g/dl (32.0-35.9); MEAN CELL VOLUME 102.3 fl (80-96); MEAN PLT VOLUME 6.3 fl (7.5-11.1); PLATELET COUNT 484 10^3/uL (134-434); RBC 2.88 M/mm3 (4.00-5.60); WHITE BLOOD COUNT 6.1 K/mm3 (4.0-10.0)
[2023-06-28 08:08] LABS: POTASSIUM 3.3 mmol/L (3.5-5.1)
[2023-06-28 08:24] LABS: BLOOD UREA NITROGEN 19.8 mg/dL (7-18); CALCIUM 8.8 mg/dL (8.5-10.1)
[2023-06-28 08:25] LABS: ALBUMIN 2.1 g/dl (3.4-5.0); MAGNESIUM 2.3 mg/dL (1.8-2.4)
[2023-06-28 08:27] LABS: CREATININE 0.2 mg/dL (0.55-1.3)
[2023-06-28 08:28] LABS: BILIRUBIN,TOTAL 0.8 mg/dL (0.2-1); TOT PROT 6.3 g/dl (6.4-8.2)
[2023-06-28] MEDS: MULTIVIT-MINERALS ORAL LIQUID GT SCH (11:41)
[2023-06-28] MEDS: DOCUSATE NA 100 MG/10 ML UNIT-DOSE CUPS PO SCH (11:41)
[2023-06-28] MEDS: FERROUS SO4 15 MG/ML *PEDIATRIC* ORAL SOLN- 50ML BTL GT SCH (11:41)
[2023-06-28] MEDS: POLYETHYLENE GLYCOL (HEALTHYLAX) 3350 17 GM PACKET GT SCH (11:41)
[2023-06-28] MEDS: PYRIDOXINE HCL (B-6) 50 MG TABLET (FP) GT SCH (11:42)
[2023-06-28 12:02] LABS: ANISOCYTOSIS 1+; MACROCYTOSIS 1+
[2023-06-28] MEDS: MUPIROCIN 2% TOPICAL OINTMENT FOR DECOLONIZATION NS SCH (15:23)
[2023-06-28] MEDS: VALPROATE SODIUM 250 MG/5 ML UNIT DOSE CUP GT SCH (16:02)
[2023-06-28] MEDS: PHYTONADIONE 10 MG/1 ML AMP IVPB ONE (16:19)
[2023-06-28] MEDS: levETIRAcetam 500 MG/5 ML ORAL SOLUTION (UNIT-DOSE CUPS) GT SCH (22:41)
[2023-06-29] MEDS: levETIRAcetam 500 MG/5 ML ORAL SOLUTION (UNIT-DOSE CUPS) GT SCH (06:34)
[2023-06-29 08:07] LABS: BASO % 0.4 % (0-2.0); HEMATOCRIT 29.6 % (35.4-49); HEMOGLOBIN 9.4 GM/dL (11.7-16.9); LYMPH % 21.8 % (8-40); MCH 32.7 pg (25.7-33.7); MCHC 31.7 g/dl (32.0-35.9); MEAN CELL VOLUME 103.2 fl (80-96); MEAN PLT VOLUME 6.3 fl (7.5-11.1); MONO % 19.8 % (3.8-10.2); PLATELET COUNT 591 10^3/uL (134-434); RBC 2.87 M/mm3 (4.00-5.60); RDW 15.7 % (11.9-15.9); WHITE BLOOD COUNT 6.8 K/mm3 (4.0-10.0)
[2023-06-29 08:13] LABS: INR 1.53 (0.83-1.09); PROTHROMBIN TIME (PATIENT) 17.7 SEC (9.7-13.0)
[2023-06-29 08:23] LABS: POTASSIUM 3.8 mmol/L (3.5-5.1)
[2023-06-29 08:29] LABS: ALBUMIN 2.2 g/dl (3.4-5.0); CALCIUM 8.5 mg/dL (8.5-10.1); MAGNESIUM 2.7 mg/dL (1.8-2.4)
[2023-06-29 08:30] LABS: BLOOD UREA NITROGEN 20.8 mg/dL (7-18)
[2023-06-29 08:32] LABS: CREATININE 0.3 mg/dL (0.55-1.3)
[2023-06-29 08:33] LABS: BILIRUBIN,TOTAL 0.6 mg/dL (0.2-1)
[2023-06-29 08:34] LABS: TOT PROT 6.6 g/dl (6.4-8.2)
[2023-06-29 14:05] LABS: BF WBC & OTHER NUCLEATED CELLS 657 /mm3
[2023-06-29 14:49] LABS: BODY FLUID MACROPHAGES 27 %; BODY FLUID MESOTHELIAL 34 %
[2023-06-30 10:01] LABS: POTASSIUM 3.9 mmol/L (3.5-5.1)
[2023-06-30 10:08] LABS: CALCIUM 8.6 mg/dL (8.5-10.1)
[2023-06-30 10:09] LABS: ALBUMIN 2.1 g/dl (3.4-5.0); BASO % 0.8 % (0-2.0); BLOOD UREA NITROGEN 21.7 mg/dL (7-18); EOS % 3.6 % (0-4.5); HEMATOCRIT 26.7 % (35.4-49); HEMOGLOBIN 8.6 GM/dL (11.7-16.9); LYMPH % 26.3 % (8-40); MAGNESIUM 2.6 mg/dL (1.8-2.4); MCH 33.3 pg (25.7-33.7); MCHC 32.3 g/dl (32.0-35.9); MEAN CELL VOLUME 103.4 fl (80-96); MEAN PLT VOLUME 6.5 fl (7.5-11.1); MONO % 18.8 % (3.8-10.2); NEUT % 50.5 % (42.8-82.8); PLATELET COUNT 590 10^3/uL (134-434); RBC 2.59 M/mm3 (4.00-5.60); RDW 15.2 % (11.9-15.9); WHITE BLOOD COUNT 6.5 K/mm3 (4.0-10.0)
[2023-06-30 10:13] LABS: BILIRUBIN,TOTAL 0.4 mg/dL (0.2-1); CREATININE 0.2 mg/dL (0.55-1.3); PHOSPHOROUS 3.8 mg/dL (2.5-4.9); TOT PROT 6.1 g/dl (6.4-8.2)
[2023-06-30] MEDS: PATIENT'S OWN MEDICATION (NON-FORMULARY) (Cannabidiol (Cbd) [Epidiolex] 100 MG/ML Solution GT SCH (10:39)
[2023-06-30] MEDS: ACETAMINOPHEN 160 MG/5 ML *Children Solution GT PRN (13:51)
[2023-06-30 14:08] LABS: BODY FLUID ALBUMIN 1.9 g/dL (Not Estab.)
[2023-06-30] MEDS: AMINO ACIDS/PROTEIN HYDROLYS 30 ML LIQUID.PKT GT SCH (18:06)
[2023-07-01] MEDS ORDERED: PIPERACILLIN/TAZOBACTAM 3.375 GM VIAL IVPB ONE (01:05)
[2023-07-01 10:19] LABS: HEMATOCRIT 26.7 % (35.4-49); HEMOGLOBIN 8.8 GM/dL (11.7-16.9); MCH 33.7 pg (25.7-33.7); MCHC 32.7 g/dl (32.0-35.9); MEAN CELL VOLUME 102.9 fl (80-96); MEAN PLT VOLUME 6.5 fl (7.5-11.1); PLATELET COUNT 594 10^3/uL (134-434); WHITE BLOOD COUNT 7.1 K/mm3 (4.0-10.0)
[2023-07-01 10:38] LABS: POTASSIUM 3.9 mmol/L (3.5-5.1)
[2023-07-01 10:55] LABS: ANISOCYTOSIS 0; MACROCYTOSIS 0
[2023-07-01 11:14] LABS: ALBUMIN 2.2 g/dl (3.4-5.0)
[2023-07-01 11:15] LABS: BLOOD UREA NITROGEN 12.2 mg/dL (7-18); CALCIUM 8.4 mg/dL (8.5-10.1); MAGNESIUM 2.1 mg/dL (1.8-2.4)
[2023-07-01 11:17] LABS: CREATININE 0.2 mg/dL (0.55-1.3)
[2023-07-01 11:19] LABS: BILIRUBIN,TOTAL 0.4 mg/dL (0.2-1); TOT PROT 6.2 g/dl (6.4-8.2)
[2023-07-01] MEDS ORDERED: SENNOSIDES 8.8 MG/5 ML SYRUP PO PRN (17:21)
[2023-07-02] MEDS: AMINO ACIDS/PROTEIN HYDROLYS 30 ML LIQUID.PKT GT SCH (09:00)
[2023-07-02 09:48] LABS: HEMATOCRIT 30.2 % (35.4-49); HEMOGLOBIN 9.9 GM/dL (11.7-16.9); MCH 33.7 pg (25.7-33.7); MCHC 32.8 g/dl (32.0-35.9); MEAN CELL VOLUME 102.7 fl (80-96); MEAN PLT VOLUME 6.3 fl (7.5-11.1); PLATELET COUNT 610 10^3/uL (134-434); RBC 2.93 M/mm3 (4.00-5.60); RDW 15.8 % (11.9-15.9); WHITE BLOOD COUNT 7.6 K/mm3 (4.0-10.0)
[2023-07-02 10:02] LABS: POTASSIUM 4.4 mmol/L (3.5-5.1)
[2023-07-02 10:05] LABS: CALCIUM 8.9 mg/dL (8.5-10.1)
[2023-07-02 10:06] LABS: ALBUMIN 2.4 g/dl (3.4-5.0); BLOOD UREA NITROGEN 6.2 mg/dL (7-18)
[2023-07-02 10:08] LABS: CREATININE 0.2 mg/dL (0.55-1.3)
[2023-07-02 10:10] LABS: BILIRUBIN,TOTAL 0.3 mg/dL (0.2-1); TOT PROT 6.8 g/dl (6.4-8.2)
[2023-07-02 11:42] LABS: ANISOCYTOSIS 1+; MACROCYTOSIS 0
[2023-07-03 09:52] LABS: BASO % 0.5 % (0-2.0); EOS % 1.4 % (0-4.5); HEMATOCRIT 34.2 % (35.4-49); HEMOGLOBIN 11.4 GM/dL (11.7-16.9); LYMPH % 19.4 % (8-40); MCH 34.1 pg (25.7-33.7); MCHC 33.4 g/dl (32.0-35.9); MEAN CELL VOLUME 102.2 fl (80-96); MEAN PLT VOLUME 6.5 fl (7.5-11.1); MONO % 14.6 % (3.8-10.2); NEUT % 64.1 % (42.8-82.8); PLATELET COUNT 626 10^3/uL (134-434); RBC 3.34 M/mm3 (4.00-5.60); RDW 16.2 % (11.9-15.9); WHITE BLOOD COUNT 9.4 K/mm3 (4.0-10.0)
[2023-07-03 10:02] LABS: POTASSIUM 4.4 mmol/L (3.5-5.1)
[2023-07-03 10:21] LABS: ALBUMIN 2.5 g/dl (3.4-5.0); BLOOD UREA NITROGEN 11.1 mg/dL (7-18); CALCIUM 9.3 mg/dL (8.5-10.1)
[2023-07-03 10:24] LABS: CREATININE 0.4 mg/dL (0.55-1.3)
[2023-07-03 10:26] LABS: BILIRUBIN,TOTAL 0.4 mg/dL (0.2-1); TOT PROT 7.1 g/dl (6.4-8.2)
[2023-07-05] MEDS: ACETAMINOPHEN 650 MG/20.3 ML ORAL SOLUTION (CUPS) GT ONE (06:22)
[2023-07-05 09:48] LABS: BASO % 0.3 % (0-2.0); HEMATOCRIT 35.5 % (35.4-49); HEMOGLOBIN 11.8 GM/dL (11.7-16.9); LYMPH % 7.3 % (8-40); MCH 33.4 pg (25.7-33.7); MCHC 33.3 g/dl (32.0-35.9); MEAN CELL VOLUME 100.2 fl (80-96); MEAN PLT VOLUME 6.9 fl (7.5-11.1); MONO % 20.9 % (3.8-10.2); NEUT % 71.5 % (42.8-82.8); PLATELET COUNT 452 10^3/uL (134-434); RBC 3.54 M/mm3 (4.00-5.60); RDW 15.6 % (11.9-15.9); WHITE BLOOD COUNT 17.7 K/mm3 (4.0-10.0)
[2023-07-05 09:51] LABS: INR 1.37 (0.83-1.09); PROTHROMBIN TIME (PATIENT) 15.8 SEC (9.7-13.0)
[2023-07-05 10:08] LABS: POTASSIUM 3.7 mmol/L (3.5-5.1)
[2023-07-05 10:12] LABS: CALCIUM 8.7 mg/dL (8.5-10.1)
[2023-07-05 10:13] LABS: ALBUMIN 2.4 g/dl (3.4-5.0); BLOOD UREA NITROGEN 24.2 mg/dL (7-18)
[2023-07-05 10:14] LABS: MAGNESIUM 2.3 mg/dL (1.8-2.4)
[2023-07-05 10:16] LABS: CREATININE 0.5 mg/dL (0.55-1.3)
[2023-07-05 10:17] LABS: TOT PROT 7.6 g/dl (6.4-8.2)
[2023-07-05 10:19] LABS: BILIRUBIN,TOTAL 0.8 mg/dL (0.2-1)
[2023-07-05] MEDS: PIPERACILLIN/TAZOB 3.375 GM 3.375 GM in DEXTROSE 5%-WATER - 50 ML IVPB ONE (10:29)
[2023-07-05] MEDS: AMINO ACIDS 4.25%/D5W 1,000 ML IV SCH (10:30)
[2023-07-05] MEDS: SODIUM CHLORIDE 1,000 ML IV SCH (10:31)
[2023-07-05] MEDS: ACETAMINOPHEN 1000 MG/100 ML BAG IVPB ONE (17:00)
[2023-07-05] MEDS: PIPERACILLIN/TAZOB 3.375 GM 3.375 GM in DEXTROSE 5%-WATER - 50 ML IVPB SCH (17:00)
[2023-07-05] MEDS: FAT EMULSION/OLIVE/SOY/PHOSPHO 250 ML IV SCH (21:06)
[2023-07-05] MEDS ORDERED: FAT EMULSION/OLIVE/SOY (CLINOLIPID) 250 ML EMULSION IV SCH (22:00)
[2023-07-05] MEDS: ACETAMINOPHEN 1000 MG/100 ML BAG IVPB PRN (22:28)
[2023-07-06] MEDS: SODIUM CHLORIDE 250 ML IV STA (05:30)
[2023-07-06 09:44] LABS: BASO % 0.1 % (0-2.0); EOS % 0.4 % (0-4.5); HEMATOCRIT 32.4 % (35.4-49); HEMOGLOBIN 10.4 GM/dL (11.7-16.9); LYMPH % 6.2 % (8-40); MCH 32.4 pg (25.7-33.7); MCHC 32.2 g/dl (32.0-35.9); MEAN CELL VOLUME 100.8 fl (80-96); MEAN PLT VOLUME 7.2 fl (7.5-11.1); MONO % 10.4 % (3.8-10.2); NEUT % 82.9 % (42.8-82.8); PLATELET COUNT 177 10^3/uL (134-434); RBC 3.22 M/mm3 (4.00-5.60); RDW 15.8 % (11.9-15.9); WHITE BLOOD COUNT 9.2 K/mm3 (4.0-10.0)
[2023-07-06 10:03] LABS: POTASSIUM 3.2 mmol/L (3.5-5.1)
[2023-07-06 10:06] LABS: BLOOD UREA NITROGEN 34.3 mg/dL (7-18); CALCIUM 7.9 mg/dL (8.5-10.1); MAGNESIUM 2.2 mg/dL (1.8-2.4)
[2023-07-06 10:09] LABS: CREATININE 0.4 mg/dL (0.55-1.3)
[2023-07-06 10:11] LABS: BILIRUBIN,TOTAL 0.6 mg/dL (0.2-1); TOT PROT 6.6 g/dl (6.4-8.2)
[2023-07-06] MEDS: POTASSIUM CHLORIDE ORAL LIQUID 20 MEQ/15 ML PO ONE (10:47)
[2023-07-06] MEDS: ENOXAPARIN NA (PORCINE) 40 MG/0.4 ML DISP.SYRIN SQ SCH (18:06)
[2023-07-06] MEDS: SCOPOLAMINE HYDROBROMIDE 1 PATCH PATCH.TD72 TD SCH (18:35)
[2023-07-07 08:49] LABS: BASO % 0.3 % (0-2.0); HEMATOCRIT 29.2 % (35.4-49); HEMOGLOBIN 9.6 GM/dL (11.7-16.9); LYMPH % 7.6 % (8-40); MCH 32.7 pg (25.7-33.7); MCHC 32.7 g/dl (32.0-35.9); MEAN PLT VOLUME 7.8 fl (7.5-11.1); MONO % 16.3 % (3.8-10.2); NEUT % 73.8 % (42.8-82.8); PLATELET COUNT 176 10^3/uL (134-434); RBC 2.92 M/mm3 (4.00-5.60); RDW 15.5 % (11.9-15.9); WHITE BLOOD COUNT 6.7 K/mm3 (4.0-10.0)
[2023-07-07 09:18] LABS: POTASSIUM 3.3 mmol/L (3.5-5.1)
[2023-07-07] MEDS: POTASSIUM CHLORIDE ORAL LIQUID 20 MEQ/15 ML PO ONE (09:38)
[2023-07-07 10:34] LABS: ALBUMIN 1.7 g/dl (3.4-5.0); BLOOD UREA NITROGEN 21.7 mg/dL (7-18); CALCIUM 7.9 mg/dL (8.5-10.1)
[2023-07-07 10:37] LABS: CREATININE 0.3 mg/dL (0.55-1.3)
[2023-07-07 10:38] LABS: BILIRUBIN,TOTAL 0.3 mg/dL (0.2-1)
[2023-07-07 10:39] LABS: TOT PROT 6.1 g/dl (6.4-8.2)
[2023-07-08] MEDS: ACETAMINOPHEN 650 MG/20.3 ML ORAL SOLUTION (CUPS) GT ONE (00:26)
[2023-07-08 10:14] LABS: BASO % 0.4 % (0-2.0); EOS % 5.9 % (0-4.5); HEMATOCRIT 27.7 % (35.4-49); HEMOGLOBIN 8.9 GM/dL (11.7-16.9); LYMPH % 28.9 % (8-40); MCH 31.8 pg (25.7-33.7); MCHC 32.3 g/dl (32.0-35.9); MEAN CELL VOLUME 98.6 fl (80-96); MEAN PLT VOLUME 7.8 fl (7.5-11.1); MONO % 16.5 % (3.8-10.2); NEUT % 48.3 % (42.8-82.8); PLATELET COUNT 219 10^3/uL (134-434); RBC 2.81 M/mm3 (4.00-5.60); RDW 15.9 % (11.9-15.9); WHITE BLOOD COUNT 3.9 K/mm3 (4.0-10.0)
[2023-07-08 10:26] LABS: POTASSIUM 3.2 mmol/L (3.5-5.1)
[2023-07-08 10:32] LABS: CALCIUM 8.4 mg/dL (8.5-10.1)
[2023-07-08 10:33] LABS: ALBUMIN 1.7 g/dl (3.4-5.0); MAGNESIUM 1.9 mg/dL (1.8-2.4)
[2023-07-08 10:36] LABS: BILIRUBIN,TOTAL 0.2 mg/dL (0.2-1); CREATININE 0.2 mg/dL (0.55-1.3)
[2023-07-08 10:37] LABS: TOT PROT 6.2 g/dl (6.4-8.2)
[2023-07-09 11:44] LABS: HEMATOCRIT 27.4 % (35.4-49); HEMOGLOBIN 9.3 GM/dL (11.7-16.9); MCH 33.2 pg (25.7-33.7); MEAN CELL VOLUME 97.5 fl (80-96); MEAN PLT VOLUME 7.5 fl (7.5-11.1); PLATELET COUNT 334 10^3/uL (134-434); RBC 2.81 M/mm3 (4.00-5.60); RDW 16.7 % (11.9-15.9)
[2023-07-09 11:51] LABS: POTASSIUM 3.4 mmol/L (3.5-5.1)
[2023-07-09 12:03] LABS: CALCIUM 8.8 mg/dL (8.5-10.1)
[2023-07-09 12:04] LABS: ALBUMIN 1.9 g/dl (3.4-5.0); BLOOD UREA NITROGEN 8.7 mg/dL (7-18); MAGNESIUM 1.8 mg/dL (1.8-2.4)
[2023-07-09 12:06] LABS: CREATININE 0.2 mg/dL (0.55-1.3)
[2023-07-09 12:07] LABS: PHOSPHOROUS 1.7 mg/dL (2.5-4.9)
[2023-07-09 12:08] LABS: BILIRUBIN,TOTAL 0.2 mg/dL (0.2-1); TOT PROT 6.6 g/dl (6.4-8.2)
[2023-07-09 12:43] LABS: ANISOCYTOSIS 0; HELMET CELLS 0; HOWELL-JOLLY BODIES 0; MACROCYTOSIS 0; OVALOCYTE 0; ROULEAU 0; SICKELED CELLS 0; TARGET CELLS 0; TEAR DROP CELLS 0; TOXIC GRANULATION 0
[2023-07-10] MEDS: ACETAMINOPHEN 1000 MG/100 ML BAG IVPB ONE (11:46)
[2023-07-11 09:32] LABS: HEMATOCRIT 29.6 % (35.4-49); HEMOGLOBIN 10.2 GM/dL (11.7-16.9); MCH 33.6 pg (25.7-33.7); MCHC 34.4 g/dl (32.0-35.9); MEAN CELL VOLUME 97.5 fl (80-96); MEAN PLT VOLUME 6.6 fl (7.5-11.1); PLATELET COUNT 536 10^3/uL (134-434); RBC 3.04 M/mm3 (4.00-5.60); RDW 17.4 % (11.9-15.9); WHITE BLOOD COUNT 6.1 K/mm3 (4.0-10.0)
[2023-07-11 09:55] LABS: POTASSIUM 3.7 mmol/L (3.5-5.1)
[2023-07-11 09:56] LABS: ALBUMIN 2.1 g/dl (3.4-5.0); BLOOD UREA NITROGEN 10.6 mg/dL (7-18); CALCIUM 8.7 mg/dL (8.5-10.1); MAGNESIUM 1.9 mg/dL (1.8-2.4)
[2023-07-11 09:59] LABS: CREATININE 0.2 mg/dL (0.55-1.3)
[2023-07-11 10:01] LABS: BILIRUBIN,TOTAL 0.2 mg/dL (0.2-1)
[2023-07-11] MEDS: ACETAMINOPHEN 1000 MG/100 ML BAG IVPB ONE (10:08)
[2023-07-11 11:33] LABS: ANISOCYTOSIS 0; MACROCYTOSIS 0
[2023-07-11 12:53] LABS: PHOSPHOROUS 3.9 mg/dL (2.5-4.9)
[2023-07-11] MEDS: FAMOTIDINE 20 MG/50 ML IVPB 20 MG/50 ML MG IVPB ONE (13:59)
[2023-07-11] MEDS: AMINO ACIDS 4.25%/D5W 1,000 ML IV SCH (16:50)
[2023-07-11] MEDS ORDERED: FAT EMULSION/OLIVE/SOY (CLINOLIPID) 250 ML EMULSION IV SCH (22:00)
[2023-07-11] MEDS: FAT EMULSION/OLIVE/SOY/PHOSPHO 250 ML IV SCH (22:40)
[2023-07-12 09:05] LABS: BASO % 0.1 % (0-2.0); EOS % 3.3 % (0-4.5); HEMATOCRIT 30.4 % (35.4-49); HEMOGLOBIN 10.3 GM/dL (11.7-16.9); MCH 32.9 pg (25.7-33.7); MCHC 33.8 g/dl (32.0-35.9); MEAN CELL VOLUME 97.5 fl (80-96); MEAN PLT VOLUME 6.5 fl (7.5-11.1); MONO % 8.7 % (3.8-10.2); NEUT % 34.9 % (42.8-82.8); PLATELET COUNT 565 10^3/uL (134-434); RBC 3.11 M/mm3 (4.00-5.60); RDW 17.3 % (11.9-15.9); WHITE BLOOD COUNT 5.4 K/mm3 (4.0-10.0)
[2023-07-12 09:59] LABS: POTASSIUM 3.6 mmol/L (3.5-5.1)
[2023-07-12 10:01] LABS: ALBUMIN 2.2 g/dl (3.4-5.0); BLOOD UREA NITROGEN 11.4 mg/dL (7-18); CALCIUM 8.3 mg/dL (8.5-10.1); MAGNESIUM 1.9 mg/dL (1.8-2.4)
[2023-07-12 10:05] LABS: CREATININE 0.3 mg/dL (0.55-1.3)
[2023-07-12 10:06] LABS: BILIRUBIN,TOTAL 0.2 mg/dL (0.2-1); TOT PROT 6.9 g/dl (6.4-8.2)
[2023-07-12 21:41] VITALS: RESP 20
[2023-07-13] MEDS: ACETAMINOPHEN 650 MG/20.3 ML ORAL SOLUTION (CUPS) PO PRN (06:42)
[2023-07-13 09:15] LABS: BASO % 0.2 % (0-2.0); EOS % 3.4 % (0-4.5); HEMATOCRIT 30.3 % (35.4-49); HEMOGLOBIN 10.2 GM/dL (11.7-16.9); LYMPH % 56.4 % (8-40); MCH 32.7 pg (25.7-33.7); MCHC 33.6 g/dl (32.0-35.9); MEAN CELL VOLUME 97.5 fl (80-96); MEAN PLT VOLUME 6.4 fl (7.5-11.1); MONO % 10.7 % (3.8-10.2); NEUT % 29.3 % (42.8-82.8); PLATELET COUNT 522 10^3/uL (134-434); RBC 3.11 M/mm3 (4.00-5.60); RDW 17.6 % (11.9-15.9); WHITE BLOOD COUNT 4.7 K/mm3 (4.0-10.0)
[2023-07-13 09:23] LABS: POTASSIUM 3.8 mmol/L (3.5-5.1)
[2023-07-13 09:27] LABS: CALCIUM 8.5 mg/dL (8.5-10.1)
[2023-07-13 09:28] LABS: ALBUMIN 2.2 g/dl (3.4-5.0); BLOOD UREA NITROGEN 12.8 mg/dL (7-18); MAGNESIUM 1.9 mg/dL (1.8-2.4)
[2023-07-13 09:29] VITALS: BP 100/52; PULSE 61; TEMP 98.2
[2023-07-13 09:31] LABS: CREATININE 0.3 mg/dL (0.55-1.3)
[2023-07-13 09:32] LABS: BILIRUBIN,TOTAL 0.2 mg/dL (0.2-1); TOT PROT 6.6 g/dl (6.4-8.2)
== END 2023-07-13 11:55 | DRG 139 ==
LOC: JER 23:49 → JERBED 06-25 08:21 → J8W 06-26 02:07 → J4W 06-27 13:16 → J8W 06-29 18:26
PROVIDERS: ADMIT Internal Medicine; ATTEND Nurse Practitioner Acute Care
PROC: 0D20XUZ Change Feeding Device in Upper Intestinal Tract, External Approach (ICD-10-PCS; principal; 2023-06-28)
PROC: 0W9B3ZZ Drainage of Left Pleural Cavity, Percutaneous Approach (ICD-10-PCS; 2023-06-29)
PROC: 05HM33Z Insertion of Infusion Device into Right Internal Jugular Vein, Percutaneous Approach (ICD-10-PCS; 2023-07-05)
PROC: B513ZZA Fluoroscopy of Right Jugular Veins, Guidance (ICD-10-PCS; 2023-07-05)
PROC: 0W9B30Z Drainage of Left Pleural Cavity with Drainage Device, Percutaneous Approach (ICD-10-PCS; 2023-07-11)
DX: J18.9 Pneumonia, unspecified organism (principal); J90 Pleural effusion, not elsewhere classified; G40.834 Dravet syndrome, intractable, without status epilepticus; E03.9 Hypothyroidism, unspecified; R79.89 Other specified abnormal findings of blood chemistry; K21.9 Gastro-esophageal reflux disease without esophagitis; H54.8 Legal blindness, as defined in USA; R53.2 Functional quadriplegia; K80.20 Calculus of gallbladder without cholecystitis without obstruction; R11.10 Vomiting, unspecified; I48.92 Unspecified atrial flutter; G40.909 Epilepsy, unspecified, not intractable, without status epilepticus; D64.9 Anemia, unspecified; R09.02 Hypoxemia; J98.11 Atelectasis; Z93.1 Gastrostomy status; Z43.1 Encounter for attention to gastrostomy
CPT/HCPCS: 0241U-QW; 32552; 32557; 36415; 36558; 36589; 71045-TC-FY; 74018-TC-FY; 74177-TC; 76705-TC; 76942; 77001-TC-FY; 80048; 80053; 80076; 80164; 80177; 82042; 82150; 82248; 82465; 82607; 82728; 82746; 82784; 82945; 82962; 83540; 83550; 83615; 83690; 83735; 83986; 84100; 84155; 84157; 84165; 84443; 84478; 85025; 85610; 86140; 86704; 86803; 87040; 87070; 87075; 87077; 87081; 87086; 87102; 87116; 87205; 87206; 87210; 87340; 87517; 87635; 88108; 88305-TC; 93005; 93010; 93306-TC; 93970-TC; 99285-25; C1751; G0480; J0131; J1644; Q9967

== ENCOUNTER 2023-07-23 09:59 | Inpatient (IN) | payer OTHER ==
[2023-07-23] MEDS ORDERED: ACETAMINOPHEN INJECTION 100 ML IVPB ONE (11:28)
[2023-07-23] MEDS: SODIUM CHLORIDE 2,354 ML IV ONE (12:06)
[2023-07-23] MEDS: ACETAMINOPHEN 1000 MG/100 ML BAG IVPB ONE (12:07)
[2023-07-23 12:18] LABS: VENOUS BASE EXCESS -1.6 mmol/L (-2-2); VENOUS O2 SATURATION 81.1 % (70-80); VENOUS PCO2 39.8 mmHg (38-52); VENOUS PH 7.384 (7.310-7.410)
[2023-07-23 12:22] LABS: BASO % 0.3 % (0-2.0); EOS % 0.9 % (0-4.5); HEMATOCRIT 42.2 % (35.4-49); HEMOGLOBIN 14.2 GM/dL (11.7-16.9); LYMPH % 16.5 % (8-40); MCH 32.3 pg (25.7-33.7); MCHC 33.6 g/dl (32.0-35.9); MEAN CELL VOLUME 96.1 fl (80-96); MEAN PLT VOLUME 8.7 fl (7.5-11.1); MONO % 15.2 % (3.8-10.2); NEUT % 67.1 % (42.8-82.8); PLATELET COUNT 167 10^3/uL (134-434); RDW 16.4 % (11.9-15.9); WHITE BLOOD COUNT 14.2 K/mm3 (4.0-10.0)
[2023-07-23 12:29] LABS: INR 1.02 (0.83-1.09); PROTHROMBIN TIME (PATIENT) 11.8 SEC (9.7-13.0)
[2023-07-23 12:31] LABS: ACTIVATED PTT 21.7 SECONDS (25.2-36.5)
[2023-07-23 12:41] LABS: POTASSIUM 4.4 mmol/L (3.5-5.1)
[2023-07-23 12:42] LABS: CALCIUM 9.6 mg/dL (8.5-10.1)
[2023-07-23 12:43] LABS: BLOOD UREA NITROGEN 20.4 mg/dL (7-18)
[2023-07-23 12:47] LABS: CREATININE 0.3 mg/dL (0.55-1.3)
[2023-07-23 12:48] LABS: BILIRUBIN,TOTAL 0.9 mg/dL (0.2-1)
[2023-07-23 12:49] LABS: TOT PROT 8.3 g/dl (6.4-8.2)
[2023-07-23 12:50] LABS: ALBUMIN 3.2 g/dl (3.4-5.0)
[2023-07-23] MEDS ORDERED: PIPERACILLIN/TAZOB 4.5 GM 4.5 GM/100 ML BAG IVPB ONE (13:31)
[2023-07-23] MEDS: PIPERACILLIN/TAZOB 4.5 GM 4.5 GM in DEXTROSE 5%-WATER 100 ML IVPB ONE (13:34)
[2023-07-23 14:09] LABS: EPI CELLS >36 /uL (0-25.1); HYALINE CASTS 2 /uL (0-3.1); URINE APPEARANCE CLEAR; URINE BACTERIA 6 /uL (0-1359); URINE BILIRUBIN NEGATIVE (NEGATIVE); URINE COLOR YELLOW; URINE GLUCOSE (UA) NEGATIVE (NEGATIVE); URINE KETONE NEGATIVE (NEGATIVE); URINE LEUK ESTERASE NEGATIVE (NEGATIVE); URINE NITRITE NEGATIVE (NEGATIVE); URINE PROTEIN NEGATIVE (NEGATIVE); URINE RBC 105 /uL (0-23.9); URINE WBC 11 /uL (0-25.8)
[2023-07-23] MEDS ORDERED: ACETAMINOPHEN 160 MG/5 ML *Children Solution GT PRN (14:48)
[2023-07-23] MEDS ORDERED: DIAZEPAM 20 MG RC PRN (14:48)
[2023-07-23] MEDS: LACTATED RINGERS SOLUTION 1,000 ML/1,000 ML INFUS.BAG IV SCH (15:10)
[2023-07-23] MEDS: VANCOMYCIN 1,000 MG in DEXTROSE 5%-WATER - 250 ML IVPB ONE (17:20)
[2023-07-23] MEDS: ONDANSETRON 4 MG/2 ML VIAL IVPUSH PRN (17:20)
[2023-07-23] MEDS ORDERED: VANCOMYCIN 1 GRAM (PRE-DOCKED) 1,000 MG/250 ML BAG IVPB ONE (17:21)
[2023-07-23] MEDS ORDERED: ONDANSETRON 4 MG/2 ML VIAL ONE (17:21)
[2023-07-23] MEDS: SCOPOLAMINE HYDROBROMIDE 1 PATCH PATCH.TD72 TD SCH (18:42)
[2023-07-23] MEDS: levETIRAcetam 500 MG/5 ML ORAL SOLUTION (UNIT-DOSE CUPS) GT SCH ×2 (18:42→22:52)
[2023-07-23] MEDS: VALPROATE SODIUM 250 MG/5 ML UNIT DOSE CUP GT SCH (20:53)
[2023-07-23] MEDS: AMINO ACIDS 4.25%/D5W 1,000 ML IV SCH (20:53)
[2023-07-23] MEDS: AMINO ACIDS/PROTEIN HYDROLYS 30 ML LIQUID.PKT GT SCH (20:53)
[2023-07-23] MEDS ORDERED: PIPERACILLIN/TAZOB 3.375 GM 3.375 GM in DEXTROSE 5%-WATER - 50 ML IVPB SCH (21:00)
[2023-07-23] MEDS ORDERED: SODIUM CHLORIDE 1 GM TABLET GT SCH (22:00)
[2023-07-23] MEDS ORDERED: SENNOSIDES 8.6MG TABLET (FP) PO SCH (22:00)
[2023-07-23] MEDS: FAMOTIDINE 20 MG/2.5 ML ORAL LIQUID GT SCH (22:52)
[2023-07-23] MEDS: GLYCOPYRROLATE 1 MG TABLET GT SCH (22:53)
[2023-07-23] MEDS: SENNOSIDES 8.8 MG/5 ML SYRUP GT SCH (22:53)
[2023-07-23] MEDS ORDERED: HEPARIN NA (PORCINE) 5,000 UNITS/ML 1ML VIAL ONE (23:13)
[2023-07-23] MEDS: HEPARIN NA (PORCINE) 5,000 UNITS/ML 1ML VIAL SQ SCH (23:19)
[2023-07-24] MEDS: PIPERACILLIN/TAZOB 3.375 GM 3.375 GM in DEXTROSE 5%-WATER - 50 ML IVPB SCH (01:17)
[2023-07-24] MEDS: LEVOTHYROXINE NA 75 MCG TABLET (FP) GT SCH (06:46)
[2023-07-24 08:59] LABS: HEMOGLOBIN 11.7 GM/dL (11.7-16.9); MCH 32.3 pg (25.7-33.7); MCHC 33.5 g/dl (32.0-35.9); MEAN CELL VOLUME 96.3 fl (80-96); MEAN PLT VOLUME 9.6 fl (7.5-11.1); PLATELET COUNT 75 10^3/uL (134-434); RBC 3.63 M/mm3 (4.00-5.60); RDW 15.6 % (11.9-15.9); WHITE BLOOD COUNT 8.3 K/mm3 (4.0-10.0)
[2023-07-24 09:01] LABS: POTASSIUM 3.4 mmol/L (3.5-5.1)
[2023-07-24 09:06] LABS: CALCIUM 8.3 mg/dL (8.5-10.1)
[2023-07-24 09:09] LABS: BLOOD UREA NITROGEN 15.4 mg/dL (7-18)
[2023-07-24 09:10] LABS: CREATININE 0.3 mg/dL (0.55-1.3)
[2023-07-24] MEDS ORDERED: MULTIVITAMINS (DAILY MVI) TABLET (FP) PO SCH (10:00)
[2023-07-24] MEDS: POLYETHYLENE GLYCOL (HEALTHYLAX) 3350 17 GM PACKET GT SCH (10:24)
[2023-07-24] MEDS: DOCUSATE NA 100 MG/10 ML UNIT-DOSE CUPS GT SCH (10:26)
[2023-07-24 10:37] LABS: ANISOCYTOSIS 0; HELMET CELLS 0; HOWELL-JOLLY BODIES 0; MACROCYTOSIS 0; OVALOCYTE 0; ROULEAU 0; SICKELED CELLS 0; TARGET CELLS 0; TEAR DROP CELLS 0; TOXIC GRANULATION 0
[2023-07-24] MEDS: MULTIVIT-MINERALS ORAL LIQUID GT SCH (10:39)
[2023-07-24] MEDS: FERROUS SO4 15 MG/ML *PEDIATRIC* ORAL SOLN- 50ML BTL GT SCH (10:39)
[2023-07-24] MEDS: ACETAMINOPHEN 500 MG TABLET (FP) GT PRN (13:33)
[2023-07-24 15:11] VITALS: BMI 31.8
[2023-07-24] MEDS: METOPROLOL TARTRATE 25 MG TABLET (FP) GT SCH (21:41)
[2023-07-24] MEDS ORDERED: METOPROLOL TARTRATE 25 MG TABLET (FP) PO SCH (22:00)
[2023-07-25] MEDS: METOPROLOL TARTRATE 5 MG/5 ML VIAL IVPUSH ONE (00:13)
[2023-07-25] MEDS: METOPROLOL TARTRATE 25 MG TABLET (FP) GT SCH (02:06)
[2023-07-25] MEDS: dilTIAZem HCL 50 MG/10 ML - 10 ML VIAL IVPUSH ONE (02:39)
[2023-07-25] MEDS ORDERED: ONDANSETRON 4 MG/2 ML VIAL IVPUSH PRN (02:59)
[2023-07-25] MEDS ORDERED: DIAZEPAM 20 MG RC PRN (02:59)
[2023-07-25] MEDS: VALPROATE SODIUM 250 MG/5 ML UNIT DOSE CUP GT SCH (06:28)
[2023-07-25] MEDS: GLYCOPYRROLATE 1 MG TABLET GT SCH (06:28)
[2023-07-25] MEDS: LEVOTHYROXINE NA 75 MCG TABLET (FP) GT SCH (06:29)
[2023-07-25] MEDS: ACETAMINOPHEN 500 MG TABLET (FP) GT PRN (07:41)
[2023-07-25] MEDS: AMINO ACIDS/PROTEIN HYDROLYS 30 ML LIQUID.PKT GT SCH (07:42)
[2023-07-25] MEDS: PIPERACILLIN/TAZOB 3.375 GM 3.375 GM in DEXTROSE 5%-WATER - 50 ML IVPB SCH (09:44)
[2023-07-25] MEDS: levETIRAcetam 500 MG/5 ML ORAL SOLUTION (UNIT-DOSE CUPS) GT SCH ×2 (09:44→21:21)
[2023-07-25] MEDS: FAMOTIDINE 20 MG/2.5 ML ORAL LIQUID GT SCH (09:46)
[2023-07-25] MEDS: MULTIVIT-MINERALS ORAL LIQUID GT SCH (09:46)
[2023-07-25] MEDS: HEPARIN NA (PORCINE) 5,000 UNITS/ML 1ML VIAL SQ SCH (09:46)
[2023-07-25] MEDS: DOCUSATE NA 100 MG/10 ML UNIT-DOSE CUPS GT SCH (09:47)
[2023-07-25] MEDS: POLYETHYLENE GLYCOL (HEALTHYLAX) 3350 17 GM PACKET GT SCH (09:48)
[2023-07-25] MEDS ORDERED: METOPROLOL TARTRATE 25 MG TABLET (FP) GT SCH (10:00)
[2023-07-25] MEDS: FERROUS SO4 15 MG/ML *PEDIATRIC* ORAL SOLN- 50ML BTL GT SCH (11:28)
[2023-07-25] MEDS: VANCOMYCIN/WATER FOR INJ (PEG) 1,000 MG/200 ML BAG IVPB SCH (14:07)
[2023-07-25] MEDS: POTASSIUM CHLORIDE ORAL LIQUID 20 MEQ/15 ML GT ONE (18:48)
[2023-07-25] MEDS: SENNOSIDES 8.8 MG/5 ML SYRUP GT SCH (21:22)
[2023-07-26 08:29] LABS: BASO % 0.4 % (0-2.0); EOS % 5.1 % (0-4.5); HEMATOCRIT 35.9 % (35.4-49); HEMOGLOBIN 11.6 GM/dL (11.7-16.9); LYMPH % 23.3 % (8-40); MCH 31.3 pg (25.7-33.7); MCHC 32.2 g/dl (32.0-35.9); MEAN CELL VOLUME 97.2 fl (80-96); MEAN PLT VOLUME 9.3 fl (7.5-11.1); MONO % 16.3 % (3.8-10.2); NEUT % 54.9 % (42.8-82.8); PLATELET COUNT 111 10^3/uL (134-434); RBC 3.69 M/mm3 (4.00-5.60); WHITE BLOOD COUNT 7.2 K/mm3 (4.0-10.0)
[2023-07-26 08:54] LABS: BLOOD UREA NITROGEN 13.8 mg/dL (7-18); MAGNESIUM 2.5 mg/dL (1.8-2.4)
[2023-07-26 08:57] LABS: CREATININE 0.3 mg/dL (0.55-1.3)
[2023-07-26] MEDS: SCOPOLAMINE HYDROBROMIDE 1 PATCH PATCH.TD72 TD SCH (15:19)
[2023-07-26] MEDS: levETIRAcetam 500 MG/5 ML ORAL SOLUTION (UNIT-DOSE CUPS) GT SCH ×2 (15:26→16:06)
[2023-07-26] MEDS: VALPROATE SODIUM 250 MG/5 ML UNIT DOSE CUP GT SCH (16:06)
[2023-07-27 08:19] LABS: POTASSIUM 3.8 mmol/L (3.5-5.1)
[2023-07-27 08:24] LABS: CALCIUM 8.7 mg/dL (8.5-10.1)
[2023-07-27 08:25] LABS: BLOOD UREA NITROGEN 14.3 mg/dL (7-18); INR 1.14 (0.83-1.09); MAGNESIUM 2.1 mg/dL (1.8-2.4); PROTHROMBIN TIME (PATIENT) 13.2 SEC (9.7-13.0)
[2023-07-27 08:27] LABS: ACTIVATED PTT 30.5 SECONDS (25.2-36.5); BASO % 0.4 % (0-2.0); CREATININE 0.2 mg/dL (0.55-1.3); EOS % 10.1 % (0-4.5); HEMATOCRIT 31.1 % (35.4-49); HEMOGLOBIN 10.4 GM/dL (11.7-16.9); LYMPH % 34.6 % (8-40); MCH 32.1 pg (25.7-33.7); MCHC 33.5 g/dl (32.0-35.9); MEAN CELL VOLUME 95.8 fl (80-96); MEAN PLT VOLUME 8.4 fl (7.5-11.1); MONO % 13.1 % (3.8-10.2); NEUT % 41.8 % (42.8-82.8); PLATELET COUNT 136 10^3/uL (134-434); RBC 3.25 M/mm3 (4.00-5.60); WHITE BLOOD COUNT 4.7 K/mm3 (4.0-10.0)
[2023-07-27 08:28] LABS: PHOSPHOROUS 4.1 mg/dL (2.5-4.9)
[2023-07-27 08:29] LABS: BILIRUBIN,TOTAL 0.2 mg/dL (0.2-1)
[2023-07-27 08:33] LABS: TOT PROT 6.2 g/dl (6.4-8.2)
[2023-07-27] MEDS: SODIUM CHLORIDE 1,000 ML IV SCH (09:30)
[2023-07-27] MEDS: SODIUM CHLORIDE 500 ML IV SCH (09:45)
[2023-07-27] MEDS ORDERED: FENTANYL CITRATE/PF 50 MCG/ML VIAL ONE (09:49)
[2023-07-27] MEDS: FENTANYL CITRATE/PF 50 MCG/ML VIAL IVPUSH ONE (09:51)
[2023-07-27 13:20] LABS: BF WBC & OTHER NUCLEATED CELLS 454 /mm3
[2023-07-27 14:02] LABS: BODY FLUID MONOCYTE 10 %
[2023-07-27 14:03] LABS: BODY FLUID MESOTHELIAL 10 %; BODYL FLD EOSINOPHIL 12 %
[2023-07-28 06:57] LABS: HEMATOCRIT 32.9 % (35.4-49); HEMOGLOBIN 10.8 GM/dL (11.7-16.9); MCH 31.5 pg (25.7-33.7); MCHC 32.8 g/dl (32.0-35.9); MEAN CELL VOLUME 95.9 fl (80-96); MEAN PLT VOLUME 7.7 fl (7.5-11.1); PLATELET COUNT 155 10^3/uL (134-434); RBC 3.43 M/mm3 (4.00-5.60); RDW 15.7 % (11.9-15.9); WHITE BLOOD COUNT 4.9 K/mm3 (4.0-10.0)
[2023-07-28 07:06] LABS: POTASSIUM 3.8 mmol/L (3.5-5.1)
[2023-07-28 07:25] LABS: CALCIUM 8.9 mg/dL (8.5-10.1)
[2023-07-28 07:26] LABS: ALBUMIN 2.1 g/dl (3.4-5.0)
[2023-07-28 07:29] LABS: CREATININE 0.2 mg/dL (0.55-1.3)
[2023-07-28 07:30] LABS: BILIRUBIN,TOTAL 0.2 mg/dL (0.2-1); TOT PROT 6.5 g/dl (6.4-8.2)
[2023-07-29 07:06] LABS: HEMATOCRIT 32.1 % (35.4-49); HEMOGLOBIN 10.5 GM/dL (11.7-16.9); MCHC 32.6 g/dl (32.0-35.9); MEAN CELL VOLUME 95.1 fl (80-96); MEAN PLT VOLUME 7.3 fl (7.5-11.1); PLATELET COUNT 169 10^3/uL (134-434); RBC 3.37 M/mm3 (4.00-5.60); RDW 15.9 % (11.9-15.9); WHITE BLOOD COUNT 4.4 K/mm3 (4.0-10.0)
[2023-07-29 07:21] LABS: POTASSIUM 3.9 mmol/L (3.5-5.1)
[2023-07-29 07:35] LABS: CALCIUM 8.8 mg/dL (8.5-10.1)
[2023-07-29 07:37] LABS: BLOOD UREA NITROGEN 14.2 mg/dL (7-18)
[2023-07-29 07:38] LABS: ALBUMIN 2.2 g/dl (3.4-5.0)
[2023-07-29 07:39] LABS: CREATININE 0.3 mg/dL (0.55-1.3)
[2023-07-29 07:42] LABS: BILIRUBIN,TOTAL 0.2 mg/dL (0.2-1); TOT PROT 6.6 g/dl (6.4-8.2)
[2023-07-29] MEDS: LORazepam 0.5 MG TABLET GT PRN (15:07)
[2023-07-29] MEDS: CEFTRIAXONE 1 GM in DEXTROSE 5%-WATER - 50 ML IVPB SCH (22:36)
[2023-07-30 07:51] LABS: BASO % 0.5 % (0-2.0); EOS % 6.8 % (0-4.5); HEMATOCRIT 32.2 % (35.4-49); HEMOGLOBIN 10.5 GM/dL (11.7-16.9); LYMPH % 33.3 % (8-40); MCH 31.1 pg (25.7-33.7); MCHC 32.6 g/dl (32.0-35.9); MEAN CELL VOLUME 95.5 fl (80-96); MEAN PLT VOLUME 7.5 fl (7.5-11.1); MONO % 13.5 % (3.8-10.2); NEUT % 45.9 % (42.8-82.8); PLATELET COUNT 204 10^3/uL (134-434); RBC 3.37 M/mm3 (4.00-5.60); RDW 15.7 % (11.9-15.9); WHITE BLOOD COUNT 5.9 K/mm3 (4.0-10.0)
[2023-07-30 07:55] LABS: POTASSIUM 3.7 mmol/L (3.5-5.1)
[2023-07-30 08:04] LABS: CALCIUM 9.1 mg/dL (8.5-10.1)
[2023-07-30 08:06] LABS: ALBUMIN 2.3 g/dl (3.4-5.0); BLOOD UREA NITROGEN 15.2 mg/dL (7-18)
[2023-07-30 08:08] LABS: CREATININE 0.3 mg/dL (0.55-1.3)
[2023-07-30 08:11] LABS: BILIRUBIN,TOTAL 0.2 mg/dL (0.2-1)
[2023-07-30] MEDS: KETOROLAC TROMETHAMINE 30 MG/1 ML VIAL IVPUSH ONE (13:37)
[2023-07-30] MEDS: SODIUM CHLORIDE 500 ML IV STA (14:43)
[2023-07-30 15:22] LABS: POTASSIUM 4.3 mmol/L (3.5-5.1)
[2023-07-30 15:23] LABS: CALCIUM 9.1 mg/dL (8.5-10.1)
[2023-07-30 15:24] LABS: ALBUMIN 2.6 g/dl (3.4-5.0); BLOOD UREA NITROGEN 16.6 mg/dL (7-18)
[2023-07-30 15:27] LABS: CREATININE 0.3 mg/dL (0.55-1.3)
[2023-07-30 15:29] LABS: BILIRUBIN,TOTAL 0.2 mg/dL (0.2-1); TOT PROT 7.8 g/dl (6.4-8.2)
[2023-07-30] MEDS: METOPROLOL TARTRATE 25 MG TABLET (FP) GT SCH (18:29)
[2023-07-30] MEDS: DEXTROSE 5%-0.45% SALINE 1,000 ML IV SCH (18:54)
[2023-07-31] MEDS: LORazepam 2 MG/ML SDV VIAL IVPUSH ONE (02:28)
[2023-07-31 06:54] LABS: HEMATOCRIT 32.2 % (35.4-49); HEMOGLOBIN 10.5 GM/dL (11.7-16.9); MCHC 32.7 g/dl (32.0-35.9); MEAN PLT VOLUME 7.2 fl (7.5-11.1); PLATELET COUNT 251 10^3/uL (134-434); RBC 3.39 M/mm3 (4.00-5.60); RDW 16.3 % (11.9-15.9); WHITE BLOOD COUNT 5.8 K/mm3 (4.0-10.0)
[2023-08-01 07:18] LABS: BASO % 0.4 % (0-2.0); EOS % 3.1 % (0-4.5); HEMATOCRIT 32.3 % (35.4-49); HEMOGLOBIN 10.9 GM/dL (11.7-16.9); LYMPH % 30.2 % (8-40); MCH 31.7 pg (25.7-33.7); MCHC 33.7 g/dl (32.0-35.9); MEAN CELL VOLUME 93.9 fl (80-96); MONO % 13.5 % (3.8-10.2); NEUT % 52.8 % (42.8-82.8); PLATELET COUNT 330 10^3/uL (134-434); RBC 3.44 M/mm3 (4.00-5.60); RDW 16.6 % (11.9-15.9); WHITE BLOOD COUNT 8.4 K/mm3 (4.0-10.0)
[2023-08-01] MEDS: LORazepam 0.5 MG TABLET GT ONE (10:26)
[2023-08-01 12:33] LABS: BASO % 0.3 % (0-2.0); EOS % 2.5 % (0-4.5); HEMATOCRIT 33.7 % (35.4-49); HEMOGLOBIN 11.2 GM/dL (11.7-16.9); MCH 31.4 pg (25.7-33.7); MCHC 33.3 g/dl (32.0-35.9); MEAN CELL VOLUME 94.5 fl (80-96); MEAN PLT VOLUME 6.9 fl (7.5-11.1); MONO % 15.9 % (3.8-10.2); NEUT % 58.3 % (42.8-82.8); PLATELET COUNT 374 10^3/uL (134-434); RBC 3.57 M/mm3 (4.00-5.60); RDW 16.6 % (11.9-15.9); WHITE BLOOD COUNT 8.3 K/mm3 (4.0-10.0)
[2023-08-01 13:02] LABS: ALBUMIN 2.8 g/dl (3.4-5.0); BLOOD UREA NITROGEN 14.1 mg/dL (7-18); CALCIUM 9.7 mg/dL (8.5-10.1)
[2023-08-01 13:05] LABS: CREATININE 0.3 mg/dL (0.55-1.3); PHOSPHOROUS 4.2 mg/dL (2.5-4.9)
[2023-08-01 13:07] LABS: BILIRUBIN,TOTAL 0.2 mg/dL (0.2-1); TOT PROT 8.1 g/dl (6.4-8.2)
[2023-08-01] MEDS ORDERED: ONDANSETRON 4 MG/2 ML VIAL IVPUSH PRN (16:56)
[2023-08-01] MEDS ORDERED: DIAZEPAM 20 MG RC PRN (16:56)
[2023-08-01] MEDS: METOPROLOL TARTRATE 25 MG TABLET (FP) GT SCH (17:48)
[2023-08-01] MEDS: ACETAMINOPHEN 500 MG TABLET (FP) GT PRN (17:48)
[2023-08-01] MEDS: AMINO ACIDS/PROTEIN HYDROLYS 30 ML LIQUID.PKT GT SCH (17:48)
[2023-08-01] MEDS: GLYCOPYRROLATE 2 MG TABLET GT SCH (22:06)
[2023-08-01] MEDS: levETIRAcetam 500 MG/5 ML ORAL SOLUTION (UNIT-DOSE CUPS) GT SCH (22:06)
[2023-08-01] MEDS: HEPARIN NA (PORCINE) 5,000 UNITS/ML 1ML VIAL SQ SCH (22:07)
[2023-08-01] MEDS: SENNOSIDES 8.8 MG/5 ML SYRUP GT SCH (22:07)
[2023-08-01] MEDS: VALPROATE SODIUM 250 MG/5 ML UNIT DOSE CUP GT SCH (22:07)
[2023-08-01] MEDS: LORazepam 0.5 MG TABLET GT PRN (22:10)
[2023-08-01] MEDS: FAMOTIDINE 20 MG/2.5 ML ORAL LIQUID GT SCH (22:33)
[2023-08-02 02:46] VITALS: RESP 18
[2023-08-02] MEDS: VANCOMYCIN/WATER FOR INJ (PEG) 1,000 MG/200 ML BAG IVPB SCH (02:51)
[2023-08-02 05:22] VITALS: TEMP 98.1
[2023-08-02] MEDS: LEVOTHYROXINE NA 75 MCG TABLET (FP) GT SCH (06:25)
[2023-08-02] MEDS: levETIRAcetam 500 MG/5 ML ORAL SOLUTION (UNIT-DOSE CUPS) GT SCH (06:26)
[2023-08-02 10:06] LABS: BASO % 0.4 % (0-2.0); EOS % 4.7 % (0-4.5); HEMATOCRIT 32.2 % (35.4-49); HEMOGLOBIN 10.5 GM/dL (11.7-16.9); LYMPH % 39.5 % (8-40); MCHC 32.7 g/dl (32.0-35.9); MEAN PLT VOLUME 6.9 fl (7.5-11.1); MONO % 15.8 % (3.8-10.2); NEUT % 39.6 % (42.8-82.8); PLATELET COUNT 333 10^3/uL (134-434); RBC 3.39 M/mm3 (4.00-5.60); RDW 16.5 % (11.9-15.9); WHITE BLOOD COUNT 5.8 K/mm3 (4.0-10.0)
[2023-08-02 10:36] LABS: ANISOCYTOSIS 1+; MACROCYTOSIS 0
[2023-08-02] MEDS: MULTIVIT-MINERALS ORAL LIQUID GT SCH (10:38)
[2023-08-02] MEDS: DOCUSATE NA 100 MG/10 ML UNIT-DOSE CUPS GT SCH (10:39)
[2023-08-02] MEDS: FERROUS SO4 15 MG/ML *PEDIATRIC* ORAL SOLN- 50ML BTL GT SCH (10:40)
[2023-08-02] MEDS: POLYETHYLENE GLYCOL (HEALTHYLAX) 3350 17 GM PACKET GT SCH (10:41)
[2023-08-02 10:42] LABS: ALBUMIN 2.4 g/dl (3.4-5.0); BLOOD UREA NITROGEN 14.6 mg/dL (7-18); CALCIUM 9.3 mg/dL (8.5-10.1); MAGNESIUM 1.9 mg/dL (1.8-2.4)
[2023-08-02 10:46] LABS: CREATININE 0.2 mg/dL (0.55-1.3); PHOSPHOROUS 3.9 mg/dL (2.5-4.9)
[2023-08-02 10:47] LABS: BILIRUBIN,TOTAL 0.2 mg/dL (0.2-1)
[2023-08-02 10:48] LABS: TOT PROT 7.2 g/dl (6.4-8.2)
[2023-08-02 14:52] VITALS: BP 132/50; PULSE 87
[2023-08-02 20:16] LABS: ATYPICAL pANCA <1:20 titer (Neg:<1:20); C-ANCA <1:20 titer (Neg:<1:20)
[2023-08-04] MEDS ORDERED: SCOPOLAMINE HYDROBROMIDE 1 PATCH PATCH.TD72 TD SCH (15:00)
== END 2023-08-02 16:45 | DRG 720 ==
LOC: JER 09:59 → JERBED 14:50 → J6S 23:54 → J4S 07-25 01:49 → J6S 08-01 16:53
PROVIDERS: ADMIT Internal Medicine; ATTEND Internal Medicine
PROC: 0W9B30Z Drainage of Left Pleural Cavity with Drainage Device, Percutaneous Approach (ICD-10-PCS; principal; 2023-07-27)
DX: A41.9 Sepsis, unspecified organism (principal); J90 Pleural effusion, not elsewhere classified; G40.834 Dravet syndrome, intractable, without status epilepticus; J18.9 Pneumonia, unspecified organism; F72 Severe intellectual disabilities; G80.0 Spastic quadriplegic cerebral palsy; I48.92 Unspecified atrial flutter; Z93.1 Gastrostomy status; E03.9 Hypothyroidism, unspecified; G40.909 Epilepsy, unspecified, not intractable, without status epilepticus; G80.9 Cerebral palsy, unspecified; H54.8 Legal blindness, as defined in USA; J98.11 Atelectasis; R09.02 Hypoxemia; K21.9 Gastro-esophageal reflux disease without esophagitis
CPT/HCPCS: 0241U-QW; 32557; 36415; 71045-TC-FY; 71250-TC; 71275-TC; 74018-TC-FY; 80048; 80053; 81003; 82803; 82945; 82962; 83520; 83605; 83615; 83735; 83986; 84100; 84157; 84484; 85025; 85027; 85610; 85730; 86038; 86235; 86256; 86431; 86850; 86900; 86901; 87040; 87070; 87075; 87081; 87086; 87102; 87116; 87205; 87206; 87210; 93005; 93010; 93306-TC; 99285-25; G0480; J0131; J1644; Q9967

== ENCOUNTER 2023-09-18 14:14 | Inpatient (IN) | payer OTHER ==
[2023-09-18 14:57] VITALS: BMI 27.3
[2023-09-18] MEDS: LACTATED RINGERS SOLUTION 1000 ML INFUS.BAG IV ONE ×2 (15:35→17:21)
[2023-09-18 15:41] LABS: VENOUS BASE EXCESS -3.2 mmol/L (-2-2); VENOUS O2 SATURATION 60.1 % (70-80); VENOUS PCO2 47.5 mmHg (38-52); VENOUS PH 7.308 (7.310-7.410)
[2023-09-18 15:42] LABS: BASO % 0.3 % (0-2.0); EOS % 1.9 % (0-4.5); HEMATOCRIT 36.2 % (35.4-49); HEMOGLOBIN 12.3 GM/dL (11.7-16.9); LYMPH % 39.7 % (8-40); MCH 30.3 pg (25.7-33.7); MCHC 34.1 g/dl (32.0-35.9); MEAN CELL VOLUME 88.8 fl (80-96); MEAN PLT VOLUME 7.5 fl (7.5-11.1); MONO % 8.8 % (3.8-10.2); NEUT % 49.3 % (42.8-82.8); PLATELET COUNT 221 10^3/uL (134-434); RBC 4.07 M/mm3 (4.00-5.60); RDW 15.5 % (11.9-15.9); WHITE BLOOD COUNT 7.3 K/mm3 (4.0-10.0)
[2023-09-18] MEDS ORDERED: HYDROCORTISONE SOD SUCCINATE 100 MG/2 ML VIAL ONE (15:42)
[2023-09-18] MEDS ORDERED: cefTRIAXone SODIUM 1 GM VIAL ONE (15:42)
[2023-09-18 15:48] LABS: INR 0.99 (0.83-1.09); PROTHROMBIN TIME (PATIENT) 11.5 SEC (9.7-13.0)
[2023-09-18 15:50] LABS: ACTIVATED PTT 33.4 SECONDS (25.2-36.5)
[2023-09-18] MEDS: HYDROCORTISONE SOD SUCCINATE 100 MG/2 ML VIAL IVPUSH ONE (15:56)
[2023-09-18] MEDS: CEFTRIAXONE 1 GM in DEXTROSE 5%-WATER - 100 ML IVPB ONE (15:57)
[2023-09-18 16:06] LABS: POTASSIUM 4.4 mmol/L (3.5-5.1)
[2023-09-18 16:08] LABS: ALBUMIN 3.1 g/dl (3.4-5.0); CALCIUM 9.5 mg/dL (8.5-10.1)
[2023-09-18 16:09] LABS: BLOOD UREA NITROGEN 14.5 mg/dL (7-18)
[2023-09-18 16:11] LABS: CREATININE 0.3 mg/dL (0.55-1.3)
[2023-09-18 16:13] LABS: BILIRUBIN,TOTAL 0.3 mg/dL (0.2-1); TOT PROT 7.5 g/dl (6.4-8.2)
[2023-09-18] MEDS: LEVOTHYROXINE SODIUM 100 MCG 5 ML VIAL IVPUSH ONE (16:28)
[2023-09-18] MEDS ORDERED: ACETAMINOPHEN 325 MG TABLET (FP) PO PRN (17:42)
[2023-09-18 17:43] LABS: PH,URINE 7.5 (5.0-8.0); URINE APPEARANCE CLEAR; URINE BILIRUBIN NEGATIVE (NEGATIVE); URINE COLOR YELLOW; URINE GLUCOSE (UA) NEGATIVE (NEGATIVE); URINE KETONE NEGATIVE (NEGATIVE); URINE LEUK ESTERASE NEGATIVE (NEGATIVE); URINE NITRITE NEGATIVE (NEGATIVE); URINE PROTEIN NEGATIVE (NEGATIVE); URINE UROBILINOGEN 0.2 mg/dL (0.2-1.0)
[2023-09-18] MEDS: DEXTROSE 5%-NORMAL SALINE 1,000 ML IV SCH (18:13)
[2023-09-18] MEDS: SCOPOLAMINE HYDROBROMIDE 1 PATCH PATCH.TD72 TD SCH (18:35)
[2023-09-18] MEDS: AMINO ACIDS/PROTEIN HYDROLYS 30 ML LIQUID.PKT GT SCH (21:28)
[2023-09-18] MEDS: levETIRAcetam 500 MG/5 ML ORAL SOLUTION (UNIT-DOSE CUPS) GT SCH ×2 (21:28→21:30)
[2023-09-18] MEDS: HEPARIN NA (PORCINE) 5,000 UNITS/ML 1ML VIAL SQ SCH (21:29)
[2023-09-18] MEDS: FAMOTIDINE 20 MG TABLET PO SCH (21:29)
[2023-09-18] MEDS ORDERED: [UNRECOGNIZED DRUG - OTHER] GT SCH (22:00)
[2023-09-18] MEDS ORDERED: PATIENT'S OWN MEDICATION (NON-FORMULARY) (Cannabidiol (Cbd) [Epidiolex] 100 MG/ML Solution GT SCH (22:00)
[2023-09-18] MEDS: VALPROATE SODIUM 250 MG/5 ML UNIT DOSE CUP PO SCH (22:40)
[2023-09-18] MEDS: CHLORHEXIDINE GLUCONATE 0.12% 15ML CUP MM SCH (22:40)
[2023-09-18] MEDS: GLYCOPYRROLATE 1 MG TABLET GT SCH (22:54)
[2023-09-19] MEDS: LEVOTHYROXINE NA 50 MCG TABLET (FP) GT SCH (06:12)
[2023-09-19] MEDS ORDERED: LEVOTHYROXINE NA 75 MCG TABLET (FP) GT SCH (07:00)
[2023-09-19 08:11] LABS: HEMATOCRIT 34.4 % (35.4-49); HEMOGLOBIN 11.5 GM/dL (11.7-16.9); MCH 30.2 pg (25.7-33.7); MCHC 33.3 g/dl (32.0-35.9); MEAN CELL VOLUME 90.7 fl (80-96); MEAN PLT VOLUME 7.8 fl (7.5-11.1); PLATELET COUNT 227 10^3/uL (134-434); RBC 3.79 M/mm3 (4.00-5.60); RDW 14.9 % (11.9-15.9); WHITE BLOOD COUNT 6.4 K/mm3 (4.0-10.0)
[2023-09-19 08:32] LABS: POTASSIUM 3.7 mmol/L (3.5-5.1)
[2023-09-19 08:40] LABS: ALBUMIN 2.8 g/dl (3.4-5.0); CALCIUM 9.1 mg/dL (8.5-10.1)
[2023-09-19 08:41] LABS: BLOOD UREA NITROGEN 9.9 mg/dL (7-18)
[2023-09-19 08:43] LABS: CREATININE 0.2 mg/dL (0.55-1.3)
[2023-09-19 08:45] LABS: BILIRUBIN,TOTAL 0.2 mg/dL (0.2-1)
[2023-09-19] MEDS ORDERED: [UNRECOGNIZED DRUG - OTHER] GT SCH (10:00)
[2023-09-19] MEDS: FERROUS SO4 15 MG/ML *PEDIATRIC* ORAL SOLN- 50ML BTL GT SCH (11:05)
[2023-09-19] MEDS: levETIRAcetam 500 MG/5 ML ORAL SOLUTION (UNIT-DOSE CUPS) GT SCH (15:01)
[2023-09-19] MEDS: VITAMINS A AND D TOPICAL OINTMENT TP SCH (17:13)
[2023-09-19] MEDS: ZINC OXIDE 20% TOPICAL OINTMENT 30 GM TUBE TP SCH (17:13)
[2023-09-20 01:15] VITALS: RESP 20
[2023-09-20 09:40] VITALS: BP 115/67; PULSE 70; TEMP 97.7
== END 2023-09-20 14:35 | DRG 207 ==
LOC: JER 14:14 → JERBED 17:33 → J4W 21:05
PROVIDERS: ADMIT Internal Medicine; ATTEND Internal Medicine
DX: I95.9 Hypotension, unspecified (principal); J90 Pleural effusion, not elsewhere classified; G80.0 Spastic quadriplegic cerebral palsy; G40.834 Dravet syndrome, intractable, without status epilepticus; E03.9 Hypothyroidism, unspecified; G40.909 Epilepsy, unspecified, not intractable, without status epilepticus; G80.9 Cerebral palsy, unspecified; H54.8 Legal blindness, as defined in USA; R53.2 Functional quadriplegia; K21.9 Gastro-esophageal reflux disease without esophagitis; R00.1 Bradycardia, unspecified; R68.0 Hypothermia, not associated with low environmental temperature; E27.40 Unspecified adrenocortical insufficiency; R51.9 Headache, unspecified; Z93.1 Gastrostomy status
CPT/HCPCS: 0241U-QW; 36415; 71045-TC-FY; 80053; 80164; 81003; 82024; 82533; 82803; 83605; 84439; 84443; 84484; 85025; 85610; 85730; 86850; 86900; 86901; 87040; 87086; 87635; 93005; 93010; 99285-25; J1644

== ENCOUNTER 2024-05-09 19:16 | Emergency (ER) | payer OTHER ==
[2024-05-09 19:31] VITALS: BMI 28.1
[2024-05-09 20:12] LABS: BASO % 0.3 % (0-2.0); EOS % 3.9 % (0-4.5); HEMATOCRIT 42.8 % (35.4-49); HEMOGLOBIN 14.5 GM/dL (11.7-16.9); LYMPH % 31.8 % (8-40); MCH 30.4 pg (25.7-33.7); MCHC 33.8 g/dl (32.0-35.9); MEAN PLT VOLUME 8.1 fl (7.5-11.1); MONO % 9.7 % (3.8-10.2); NEUT % 54.3 % (42.8-82.8); PLATELET COUNT 219 10^3/uL (134-434); RBC 4.76 M/mm3 (4.00-5.60); RDW 13.6 % (11.9-15.9); WHITE BLOOD COUNT 6.4 K/mm3 (4.0-10.0)
[2024-05-09 20:30] LABS: POTASSIUM 4.1 mmol/L (3.5-5.1)
[2024-05-09 20:35] LABS: ALBUMIN 3.7 g/dl (3.4-5.0); BLOOD UREA NITROGEN 11.5 mg/dL (7-18); CALCIUM 10.1 mg/dL (8.5-10.1); MAGNESIUM 1.9 mg/dL (1.8-2.4)
[2024-05-09 20:38] LABS: CREATININE 0.3 mg/dL (0.55-1.3)
[2024-05-09 20:39] LABS: PHOSPHOROUS 3.6 mg/dL (2.5-4.9)
[2024-05-09 20:40] LABS: BILIRUBIN,TOTAL 0.3 mg/dL (0.2-1)
[2024-05-10 06:12] VITALS: RESP 18; TEMP 98.4
[2024-05-10 08:49] VITALS: BP 142/88; PULSE 78
== END 2024-05-10 11:30 | disposition home or self-care (01) ==
LOC: JER 19:16
DX: R11.2 Nausea with vomiting, unspecified (principal); R19.7 Diarrhea, unspecified; Z20.822 Contact with and (suspected) exposure to COVID-19
CPT/HCPCS: 0241U-QW; 36415; 71045-TC-FY; 74177-TC; 80053; 83605; 83735; 84100; 85025; 93005; 93010; 99285-25; Q9967